=== PATIENT | male | born 1990 | race African-American/Black ===

== ENCOUNTER 2020-12-18 18:14 | Emergency (ER) | payer MEDICAID, SELFPAY ==
[2020-12-18 19:12] VITALS: BP 122/76; PULSE 66; RESP 16; TEMP 36.8; O2SAT 100; BMI 22.1
--- NOTE | 2020-12-18 20:18 | ED_ITS ---
HPI - Skin/Abscess/Foreign Bdy General Chief complaint: Skin/Abscess/Foreign Body Stated complaint: rash Time Seen by Provider: 12/18/20 20:15 Source: patient Mode of arrival: ambulatory Limitations: no limitations History of Present Illness HPI narrative: PATIENT PRESENTS TO ED FOR ITCHY RASH ON NECK, BACK, CHEST, AND EXTREMITIES. 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 PATIENT DENIES BEING BITTEN BY A TICK. PATIENT DENIES ANY FEVER OR CHILLS. Related Data Previous Rx's Medication Instructions Recorded diphenhydramine HCl 25 mg capsule 25 mg PO TID PRN #30 cap 12/18/20 (Benadryl) famotidine 20 mg tablet (Pepcid) 20 mg PO BID 10 Days #20 tab 12/18/20 prednisone 20 mg tablet 60 mg PO DAILY 5 Days #15 tab 12/18/20 Allergies Allergy/AdvReac Type Severity Reaction Status Date / Time No Known Allergies Allergy Unverified 12/18/20 19:17 [No Known Allergies*] Review of Systems Review of Systems: Yes all other systems are reviewed and are negative Constitutional: Constitutional: Reports as per HPI and Reports no additional constitutional complaints Eyes: Eyes: Reports as per HPI and Reports no additional eye complaints ENT: Reports system reviewed and no additional complaints, except as documented and Reports as per HPI Cardiovascular: Cardiovascular: Reports as per HPI and Reports no additional cardiovascular complaints Respiratory: Respiratory: Reports as per HPI and Reports no additional respiratory complaints Gastrointestinal: Gastrointestinal: Reports as per HPI and Reports no additional gastrointestinal complaints Genitourinary: Genitourinary: Reports no additional male genitourinary complaints and Reports as per HPI Musculoskeletal: Musculoskeletal: Reports no additional musculoskeletal complaints and Reports as per HPI Integumentary/Breasts: Skin/Breast: Reports system reviewed and no additional complaints, except as docu and Reports as per HPI Comments: ITCHY RASH ON CHEST, NECK, BACK, AND EXTREMITIES Neurologic: Reports system reviewed and no additional complaints, except as documented and Reports as per HPI Psychiatric: Psychiatric: Reports no additional psychiatric complaints and Reports as per HPI PMF Past Medical History Medical History (Updated 12/18/20 @ 20:27 by SYL Mei) No known health problems Social History Social History Advance Directives: No Advance Directives Information Provided: No Physical Exam Vital Signs: Vital Signs: Last Vital Signs Temp 98.2 F 08/10/21 19:12 Pulse 66 12/18/20 19:12 Resp 16 12/18/20 19:12 BP 122/76 12/18/20 19:12 Pulse Ox 100 12/18/20 19:12 Body Mass Index 22.1 Const: General: cooperative, healthy appearing, comfortable, no acute distress, well developed, alert, awake and Physically active Orientation/consciousness: patient oriented x3 HENMT: Other: NEGATIVE FOR ANY SWELLING OF LIPS/TONGUE/UVULA. Head: Yes normal to inspection and Yes No palpable skull fracture present Ears: hearing grossly normal bilaterally Eyes: General: appearance normal, both eyes and all related structures Neck: Other: UTICARIA RASH/DERMATITIS Neck: Yes normal visual inspection, Yes full ROM, Yes no lymphadenopathy, Yes no meningeal signs, Yes trachea midline, Yes supple and No tender Chest: Other: YOU TO UTICARIA RASH/DERMATITIS Chest palpation & inspection: normal inspection of the chest and normal palpation of entire chest wall Resp: Effort & Inspection: normal respiratory effort and able to speak in complete sentences Auscultation: clear to auscultation bilaterally Cardio: Jugular venous distension: no JVD Heart sounds: S1 normal heart sound present and S2 normal heart sound present GI: Inspection: Yes normal to inspection and No abdominal wall ecchymosis Palpation (GI): Soft to palpation, not firm, nontender, no guarding and not rigid : General: No CVA tenderness and Yes no CVA tenderness Back/Spine/Pelvis: Other: POSITIVE FOR UTICARIAL RASH/DERMATITIS Back: no CVA tenderness, No CVA tenderness and No back tenderness Skin: Other: UTICARIAL RASH/DERMATITIS RASH Neuro: General: patient oriented x3, no meningeal signs and CN's II-XI intact bilaterally Cranial nerves: Yes CN's II-XII intact bilaterally Extrem: Other: UPPER LOWER EXTREMITIES POSITIVE FOR UTICARIAL RASH/DERMATITIS Course Course Course Narrative: ALLERGIC REACTION. NEGATIVE FOR AIRWAY COMPROMISE. Reevaluation(s) Reevaluation #1: PATIENT WILL BE DISCHARGED WITH BENADRYL, PREDNISONE, AND PEPCID Time: 20:25 MDM - Skin/Abscess/Foreign Bdy MDM Narrative Medical decision making narrative: ALLERGIC REACTION Discharge Plan Discharge Clinical Impression: Allergic reaction Patient Disposition: Home, Self-Care Instructions: Urticaria (ED), General Allergic Reaction (ED) Additional Instructions: RETURN TO THE ED FOR SWELLING OF LIPS, SWELLING OF TONGUE, SHORTNESS OF BREATH, SENSATION OF THROAT CLOSING, FEVER, CHILLS, WORSENING RASH, SHORTNESS OF BREATH, CHEST PAIN, OR ANY OTHER CONCERNING SYMPTOMS. Follow up with PCP. Prescriptions: New famotidine [Pepcid] 20 mg tablet 20 mg PO BID 10 Days Qty: 20 RF: 0 prednisone 20 mg tablet 60 mg PO DAILY 5 Days Qty: 15 RF: 0 diphenhydramine HCl [Benadryl] 25 mg capsule 25 mg PO TID PRN (Reason: allergic reaction) Qty: 30 RF: 0 Interventions: ED Discharge Assessment Last Done: 12/18/20 20:37 Discharge Date/Time: 12/18/20 20:38 Print Language: Persian
== END 2020-12-18 20:38 | disposition home or self-care (01) ==
PROVIDERS: Emergency Provider Emergency Medicine
DX: L50.9 Urticaria, unspecified (principal); T78.40XA Allergy, unspecified, initial encounter; X58.XXXA Exposure to other specified factors, initial encounter
CPT/HCPCS: 99283

== ENCOUNTER 2021-06-06 10:32 | Emergency (ER) | payer MEDICAID, SELFPAY ==
[2021-06-06 10:42] VITALS: BP 130/72; PULSE 72; RESP 18; TEMP 36.7; O2SAT 98; BMI 20.7
--- NOTE | 2021-06-06 10:48 | ED_ITS ---
HPI - General Adult General Chief complaint: Skin/Abscess/Foreign Body Stated complaint: lump on l hip and under l arm Time Seen by Provider: 06/06/21 10:48 Source: patient Limitations: no limitations History of Present Illness HPI narrative: Patient presents the ER with a small abscess in his left arm. Over the past 24- 48 hours. No prior history of similar episodes in the past. Patient takes no current medications and denies any past medical history. Patient is also complaining of an area in his left groin inguinal area with some swelling and pain. Patient has done some warm compresses no discharge has been noted from 90 area. Symptoms are [id number] pain is 5/10 no other complaints Related Data Previous Rx's Medication Instructions Recorded diphenhydramine HCl 25 mg capsule 25 mg PO TID PRN #30 cap 12/18/20 (Benadryl) famotidine 20 mg tablet (Pepcid) 20 mg PO BID 10 Days #20 tab 12/18/20 prednisone 20 mg tablet 60 mg PO DAILY 5 Days #15 tab 12/18/20 cephalexin 500 mg capsule 500 mg PO QID #40 cap 06/06/21 doxycycline hyclate 100 mg capsule 100 mg PO BID 10 Days #20 cap 06/06/21 Allergies Allergy/AdvReac Type Severity Reaction Status Date / Time No Known Allergies Allergy Verified 06/06/21 10:44 [No Known Allergies*] Review of Systems Verdana 4l Constitutional: Verdana 4d Constitutional: Verdana 4d Verdana 4d Denies body ache(s), Denies chills, Reports fever(s) (Question) and Denies headache(s) Verdana 4l ENT: Verdana 4d Denies headache(s) and Denies sore throat Verdana 4l Cardiovascular: Verdana 4d Cardiovascular: Verdana 4d Verdana 4d Denies chest pain and Denies dyspnea Verdana 4l Respiratory: Verdana 4d Verdana 4d Respiratory: Verdana 4d Denies dyspnea Verdana 4l Gastrointestinal: Verdana 4d Gastrointestinal: Verdana 4d Verdana 4d Denies diarrhea, Denies nausea and Denies vomiting Verdana 4l Musculoskeletal: Verdana 4d Musculoskeletal: Verdana 4d Verdana 4d Reports no additional musculoskeletal complaints Verdana 4l Integumentary/Breasts: Verdana 4d Comments: Verdana 4d Verdana 4d Verdana 4d Abscess left axilla left groin swelling Verdana 4d Verdana 4l Neurologic: Verdana 4d Denies headache(s) [facility] Past Medical History Attestation statement: The following information was validated with the patient. Medical History No known health problems Social History Social History Advance Directives: No Advance Directives Information Provided: Yes Physical Exam Verdana 4l Vital Signs: Verdana 4d Verdana 4d Vital Signs: Verdana 4d Verdana 4Bd Last Vital Signs Verdana 4d [employer] New 4d [employer] New 4d Temp 98.0 F 06/06/21 10:42 [employer] New 4d Pulse 72 06/06/21 10:42 [employer] New 4d Resp 18 06/06/21 10:42 BP 130/72 06/06/21 10:42 Pulse Ox 98 06/06/21 10:42 BMI result Body Mass Index 20.7 vital signs have been reviewed as normal and appeared to be correct. Blood pressure normal. Heart rate normal. Respiration rate normal. Temperature normal. Oxygen saturation normal. Appearance: Alert. Oriented X3. No acute distress. Head: Normal external exam. Normocephalic. Atraumatic. Eyes: PERRLA. EOMI. Conjunctiva and sclera normal. Eyelids normal. ENT: Pharynx normal. Uvula midline. Moist mucous membranes. Neck: Soft full range of motion CVS: Heart regular rate and rhythm no murmurs and rubs Respiratory: Breath sounds are clear to auscultation bilaterally. No accessory muscle use noted. Abdomen: Soft nontender no rebound or guarding positive bowel sounds Back: Full range of motion noted. Skin: Left axilla patient is very small draining abscess positive tenderness. Left inguinal area there is an area of edema in tenderness lymphadenopathy versus localized abscess positive tenderness no induration no lymphangitis Extremities: No lower extremity edema. Extremities exhibit normal range of motion. Extremities nontender. Neuro: Oriented X 3. No motor deficit. No sensory deficit. Reflexes normal. Course Course Course Narrative: Left axilla abscess Left inguinal abscess Left inguinal lymphangitis Left inguinal hematoma Case discussed with Dr. Bill will place ultrasound on left inguinal mass 11:38 a.m. Bedside ultrasound done by Dr. Bill some lymphadenopathy noted with may be a small abscess due to the location will not try needle aspirate at this time will start patient on oral antibiotics as recommended by Dr. Bill. Will discharge patient home on doxycycline and Keflex Discharge Plan Discharge Clinical Impression: Abscess of skin or subcutaneous tissue Patient Disposition: Home, Self-Care Instructions: Abscess (ED) Additional Instructions: Warm compresses 3 to 4 times a day Antibiotics as directed Return if symptoms worsen Prescriptions: New doxycycline hyclate 100 mg capsule 100 mg PO BID 10 Days Qty: 20 0RF cephalexin 500 mg capsule 500 mg PO QID Qty: 40 0RF No Action famotidine [Pepcid] 20 mg tablet 20 mg PO BID 10 Days Qty: 20 0RF prednisone 20 mg tablet 60 mg PO DAILY 5 Days Qty: 15 0RF diphenhydramine HCl [Benadryl] 25 mg capsule 25 mg PO TID PRN (Reason: allergic reaction) Qty: 30 0RF Rx Instructions: side effect is drowsiness. Do not take at work or while driving. Stand Alone Forms: Work/School Release
== END 2021-06-06 11:48 | disposition home or self-care (01) ==
PROVIDERS: Emergency Provider Emergency Medicine
DX: L02.412 Cutaneous abscess of left axilla (principal); L02.214 Cutaneous abscess of groin
CPT/HCPCS: 99283

== ENCOUNTER 2021-06-20 22:16 | Inpatient (IN) | payer MEDICAID, OTHER, SELFPAY ==
--- NOTE | ~2021-06-20 | XR_ITS ---
EXAMINATION: XR TOES, LEFT CLINICAL INFORMATION: Evaluate for fracture. Attention left great toe COMPARISON: None TECHNIQUE: Frontal view of the left foot. 2 views of the left great toe FINDINGS: There is an intra-articular fracture involving the medial third of the distal phalanx of the great toe. The margins are slightly indistinct. The articular surface is irregular. There is some associated soft tissue swelling. XR/XR toe LT min 2V IMPRESSION: Intra-articular fracture involving the medial third of the distal phalanx of the great toe. The margins are indistinct suggesting this may be subacute. There is associated soft tissue swelling
--- NOTE | 2021-06-20 22:18 | ED_ITS ---
HPI - Psych General Chief Complaint: Psychiatric Symptoms Stated Complaint: SI Time Seen by Provider: 06/20/21 22:18 Source: patient Mode of arrival: EMS Limitations: other (agitated) History of Present Illness MD complaint: suicidal ideation, feels depressed and other ( I am crazy ) Onset (ago): day(s) (1) Duration: getting worse History of same: Yes Relieving factors: none Exacerbating factors: alcohol Context: recent alcohol abuse Associated psychiatric symptoms: depression and suicidal ideation Associated symptoms: denies other symptoms Treatments prior to arrival: none Related Data Home Medications Medication Instructions Recorded Confirmed No Known Home Meds 06/20/21 06/20/21 Allergies Allergy/AdvReac Type Severity Reaction Status Date / Time No Known Allergies Allergy Verified 06/06/21 10:44 [No Known Allergies*] Review of Systems Review of Systems: Constitutional : No Fever, No Chills ENT/Mouth : No Ear Pain, No Nasal Congestion, No sore throat Eyes: No Eye Pain, No Swelling, No Redness Cardiovascular : No Chest Pain, No SOB Respiratory : No Cough, No Sputum, No Dyspnea Gastrointestinal : No Nausea, No Vomiting, No Diarrhea, No Hematochezia, No Melena Genitourinary : No Dysuria, No Urinary Frequency, No Hematuria Musculoskeletal : No Myalgias Skin : No Skin Lesions, No rash Neuro : No Weakness, No Numbness, No Paresthesias, No Dizziness, No Headache Psych : positive Anxiety, positive Depression, positive SI no HI Heme/Lymph: No Lymphadenopathy Endocrine : No Polyuria, No Polydipsia All other systems reviewed and are negative [facility] Past Medical History Attestation statement: The following information was validated with the patient. Medical History Anxiety No known health problems Social History Social History (Updated 06/20/21 @ 22:41 by Diamante Mena DO) Alcohol intake: current Patient Tobacco Use Status: Current everyday Tobacco user Advance Directives: No Physical Exam Vital Signs: Vital Signs: Last Vital Signs Temp 97.5 F 06/20/21 22: Pulse 93 06/20/21 22:23 Resp 20 06/20/21 22:23 BP 119/76 06/20/21 22:23 Pulse Ox 96 06/20/21 22:23 BMI result Body Mass Index 23.7 Appearance: Alert. Oriented X3. No acute distress. agitated. Eyes: Pupils equal, round and reactive to light. ENT: Pharynx normal. Neck: Normal inspection. Neck supple. CVS: Normal heart rate and rhythm. Pulses normal. Respiratory: No respiratory distress. Breath sounds normal. Abdomen: Soft and nontender. Skin: Skin warm and dry. Normal skin color. Normal skin turgor. Extremities: No lower extremity edema. No calf ttp Neuro: Oriented X 3. No motor deficit. No sensory deficit [id number] Psych: pos anxiety, aggressive. I am crazy Course Course Course Narrative: asymptomatic COVID 19 - unvaccinated Physician observation started at 1112pm Patient placed in physician observation because the patient needed more time for N to assess him given SI statements. At the time observation was started the patient's vitals were stable, patient is alert and oriented but slightly agitated, Neuro: nonfocal, CV RRR, Lungs clear MDM - Psych MDM Narrative Medical decision making narrative: 30 yo male with reported anxiety states he is intoxicated and I am crazy brought in by EMS for making SI statements. He is agitated and vague historian. Requesting PO ativan for anxiety. At this time will obtain labs and refer to N. Lab Data Result diagrams: 06/20/21 22:40 06/20/21 22:40 Labs: Lab Results 06/20/21 06/20/21 06/20/21 Range/Units 22:28 22:40 22:40 WBC 5.9 (4.8-10.8) X10*3/uL RBC 3.83 L (4.60-5.80) X10*6/uL Hgb 12.2 L (14.0-18.0) g/dl Hct 39.0 L (42.0-52.0) % MCV 101.8 H (80.0-98.0) fL MCH 31.9 (27.0-33.0) pg MCHC 31.3 (31.0-36.0) g/dl RDW 12.2 (11.0-16.0) % Plt Count 372 (160-400) X10*3/uL MPV 8.9 L (9.4-12.4) fL Immature Gran % (Auto) 0.2 (0.0-0.4) % Neut % (Auto) 49.7 (45-73) % Lymph % (Auto) 44.8 H (20-40) % Mcnairy % (Auto) 4.3 (2-11) % Eos % (Auto) 0.5 (0-4) % Baso % (Auto) 0.5 (0-2) % Lymph # (Auto) 2.6 (1.2-4.9) X10*3/uL Mcnairy # (Auto) 0.3 (0.1-1.2) X10*3/uL Eos # (Auto) 0.0 (0.0-0.4) X10*3/uL Baso # (Auto) 0.0 (0.0-0.2) X10*3/uL Abs Immat Gran (auto) 0.01 (0.00-0.03) X10*3/uL Absolute Neuts (auto) 2.9 (2.0-8.3) x10*3/uL Absolute Nucleated RBC 0.000 (0.0-0.012) X10*3/uL Nucleated RBC % (auto) 0.0 (0.0-0.2) /100WBC Sodium 142 (135-145) mmol/L Potassium 4.6 (3.3-5.1) mmol/L Chloride 106 (96-108) mmol/L Carbon Dioxide 26 (22-29) mmol/L Anion Gap 15 (12-20) BUN 17 H (9-16) mg/dL Creatinine 0.84 (0.5-1.4) mg/dL Estim Creat Clear Calc 136.9 Estimated GFR > 60 Random Glucose 95 (60-115) mg/dL Calcium 9.5 (8.4-10.2) mg/dL Total Bilirubin 0.4 (0.0-1.0) mg/dL Direct Bilirubin 0.2 (0.0-0.5) mg/dL AST 41 H (5-37) U/L ALT 20 (0-40) U/L Alkaline Phosphatase 124 H (39-117) U/L Total Protein 9.1 H (6.5-8.0) g/dL Albumin 4.8 (3.5-5.0) g/dL Ethyl Alcohol mg/dL COVID-19 ([facility]) Positive A (Negative) COVID-19 Clin Com See Note 06/20/21 Range/Units 22:40 WBC (4.8-10.8) X10*3/uL RBC (4.60-5.80) X10*6/uL Hgb (14.0-18.0) g/dl Hct (42.0-52.0) % MCV (80.0-98.0) fL MCH (27.0-33.0) pg MCHC (31.0-36.0) g/dl RDW (11.0-16.0) % Plt Count (160-400) X10*3/uL MPV (9.4-12.4) fL Immature Gran % (Auto) (0.0-0.4) % Neut % (Auto) (45-73) % Lymph % (Auto) (20-40) % Mcnairy % (Auto) (2-11) % Eos % (Auto) (0-4) % Baso % (Auto) (0-2) % Lymph # (Auto) (1.2-4.9) X10*3/uL Mcnairy # (Auto) (0.1-1.2) X10*3/uL Eos # (Auto) (0.0-0.4) X10*3/uL Baso # (Auto) (0.0-0.2) X10*3/uL Abs Immat Gran (auto) (0.00-0.03) X10*3/uL Absolute Neuts (auto) (2.0-8.3) x10*3/uL Absolute Nucleated RBC (0.0-0.012) X10*3/uL Nucleated RBC % (auto) (0.0-0.2) /100WBC Sodium (135-145) mmol/L Potassium (3.3-5.1) mmol/L Chloride (96-108) mmol/L Carbon Dioxide (22-29) mmol/L Anion Gap (12-20) BUN (9-16) mg/dL Creatinine (0.5-1.4) mg/dL Estim Creat Clear Calc Estimated GFR Random Glucose (60-115) mg/dL Calcium (8.4-10.2) mg/dL Total Bilirubin (0.0-1.0) mg/dL Direct Bilirubin (0.0-0.5) mg/dL AST (5-37) U/L ALT (0-40) U/L Alkaline Phosphatase (39-117) U/L Total Protein (6.5-8.0) g/dL Albumin (3.5-5.0) g/dL Ethyl Alcohol 133 mg/dL COVID-19 ([facility]) (Negative) COVID-19 Clin Com Discharge Plan Discharge Clinical Impression: Suicidal ideation, COVID-19, Alcohol intoxication Patient Disposition: Still a Patient Prescriptions: No Action No Known Home Meds 0RF
[2021-06-20 22:23] VITALS: BP 119/76; PULSE 93; RESP 20; TEMP 36.4; O2SAT 96; BMI 23.7
[2021-06-20 22:42] LABS: COVID-19 Test Positive (Negative); IDNOW Serial# 55D5AD1C
[2021-06-20 22:45] LABS: MANUAL DIFF FLAG NO
[2021-06-20 22:47] LABS: Basophils Percent Auto 0.5 % (0-2); Eosinophils Percent Auto 0.5 % (0-4); Hemoglobin 12.2 g/dl (14.0-18.0); Imm Gran Abs Auto 0.01 X10*3/uL (0.00-0.03); Imm Gran Pct Auto 0.2 % (0.0-0.4); Lymphocytes Absolute Auto 2.6 X10*3/uL (1.2-4.9); Lymphocytes Percent Auto 44.8 % (20-40); Mean Corpuscular HGB Conc 31.3 g/dl (31.0-36.0); Mean Corpuscular Hemoglobin 31.9 pg (27.0-33.0); Mean Corpuscular Volume 101.8 fL (80.0-98.0); Mean Platelet Volume 8.9 fL (9.4-12.4); Monocytes Absolute Auto 0.3 X10*3/uL (0.1-1.2); Monocytes Percent Auto 4.3 % (2-11); Neutrophils Absolute Auto 2.9 x10*3/uL (2.0-8.3); Neutrophils Percent Auto 49.7 % (45-73); Platelet Count 372 X10*3/uL (160-400); Red Blood Count 3.83 X10*6/uL (4.60-5.80); Red Cell Distribution Width 12.2 % (11.0-16.0); White Blood Count 5.9 X10*3/uL (4.8-10.8)
[2021-06-20] MEDS: Nicotine 21 MG PATCH.TD24 TRANSDERMA (22:54)
[2021-06-20] MEDS: LORazepam 1 MG TABLET 2 MG PO (22:54)
[2021-06-20 23:05] LABS: Ethanol 133 mg/dL
[2021-06-20 23:09] LABS: Alanine Aminotransferase 20 U/L (0-40); Albumin Level 4.8 g/dL (3.5-5.0); Alkaline Phosphatase 124 U/L (39-117); Anion Gap 15 (12-20); Aspartate Amino Transferase 41 U/L (5-37); Bilirubin Direct 0.2 mg/dL (0.0-0.5); Bilirubin Total 0.4 mg/dL (0.0-1.0); Blood Urea Nitrogen 17 mg/dL (9-16); Calcium 9.5 mg/dL (8.4-10.2); Carbon Dioxide 26 mmol/L (22-29); Chloride 106 mmol/L (96-108); Creatinine Clr Calc Pharmacy 136.9; Estimated Glomerular Filt Rate > 60; Glucose Random 95 mg/dL (60-115); Potassium 4.6 mmol/L (3.3-5.1); Sodium 142 mmol/L (135-145); Total Protein 9.1 g/dL (6.5-8.0)
--- NOTE | 2021-06-21 | ECG_ITS ---
Test Reason : MEDICAL CLERANCE Blood Pressure : / mmHG Vent. Rate : 063 BPM Atrial Rate : 063 BPM P-R Int : 156 ms QRS Dur : 084 ms QT Int : 402 ms P-R-T Axes : 057 070 046 degrees QTc Int : 411 ms Sinus rhythm with marked sinus arrhythmia Otherwise normal ECG No previous ECGs available Referred By: Adwoa Jackson Electronically Signed By:Selvin Zamora
--- NOTE | 2021-06-21 05:20 | PC.NURSE ---
Patient slept through the night, no distress observed/reported, patient received Ativan 2 mg @ 2254 with good effect, [facility] referral completed/confirmed, pending evaluation in the morning, vss, will continue to monitor.
[2021-06-21 06:37] VITALS: BP 131/63; PULSE 83; RESP 18; TEMP 2.7; TEMP 36.9; O2SAT 99
--- NOTE | 2021-06-21 08:28 | PC.NURSE ---
Pt has been sleeping. chest rise noted.
[2021-06-21 09:26] LABS: Amphetamine Screen Urine Not Detected (Not Detect); Barbiturates, Urine Not Detected (Not Detect); Benzodiazepines Screen Urine Not Detected (Not Detect); Cannabinoid Screen Urine POSITIVE (Not Detect); Cocaine Screen Urine Not Detected (Not Detect); Fentanyl, urine Not Detected (Not Detect); Opiate Screen Urine Not Detected (Not Detect); Phencyclidine Screen Urine Not Detected (Not Detect)
--- NOTE | 2021-06-21 12:40 | P.CNPS_ITS ---
History of Present Illness Date of Service: 06/21/2021 Chief Complaint: SI Reason for Consult: Auditory hallucinations, telling him to run into traffic. Requesting physician: Denae Pereira Discussed with referring provider: Yes Sources of Information: patient interviewed, chart reviewed and crisis/core team assessment reviewed HPI Narrative: Patient is a 30-year-old single male, presented to [facility] via EMS. He called EMS regarding suicidal ideation, and stating ?I am going crazy ?. BAL 133 upon presentation, tox screen positive for marijuana. He says that he has been drinking and using cannabis in order Help manage the hallucinations. He did not appear to be intoxicated at any point during our encounter, nor were any withdrawal symptoms present. Care team has already met with patient. He presented as calm, cooperative upon approach, and was agreeable to meeting with me. Dressed in [facility], resting in bed. He was agreeable to meeting with me. He describes his mood as afraid, nervous . He reports that he has been having auditory and visual hallucinations, which have been occurring for at least several months, recently becoming more intense. Prior to Calling EMS, he stated that the voices started telling him to run into traffic. He denies any history of SI attempts. He says that the voices scared him, and that he wants to get help. He describes the voices as mainly whispers, but recently as clear voices, Command hallucinations urging him to kill himself. He does describe visual hallucinations at first as shadows, but now often times are people. He was unable at this time to report that he feels safe. He says he does not have any history of attempts of SI. He was born in [place], and States that his mother has never really been a part of his life. He moved to [place] with his father at age 3, and has grown up with his mother and father. He states that he currently does not know where his father is at this time, And has lost contact. He did attend high school, although did not graduate. He says that he got into an argument with his grandmother, and has been staying with friends. He works full-time for a [employer]. 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 He says that he has called in this morning to let them know he is in the hospital. He states he has never been hospitalized on a psychiatric unit. He does report though that he started therapy As 18, and was at [facility] during that time. When asked why he was there, he stated ?for anger issues ?. He states that he does remember being given some type of medication for anxiety and mood. He describes it as orange pills, and he seems remember a dose of 500 mg. He is u nable to recall the name. He does say that when he was taking the medication it made him feel more stable. Past Psychiatric History: [facility] as a teen. Therapy as a teen. Medical Evaluation Reviewed: Yes Personal & Social History: Moved to [facility] at age 3. Raised by father and grand mother. States mother has not involved throughout his life. Attended vocational high school, did not complete. 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 Single, no children. Review of Systems Review of Systems A full review of systems was completed and was negative with the exception of pertinent positives noted in history of the presenting illness (HPI). Yes all other systems are reviewed and are negative Constitutional: Reports no additional constitutional complaints Psychiatric: Reports anxiety, Reports auditory hallucinations, Reports visual hallucinations and Reports suicidal ideation [facility] Medical History Anxiety No known health problems Family History: No psychiatric or physical illness reported. Social History: Raised by grandmother and father. No current contact with father, never had contact with mother. Employed full-time. Single, no children. Substance History: Reports occasional alcohol and cannabis use, states uses to stop the voices ?. Trauma History: None reported. Diagnostics Vital Signs (24Hr): Vital Signs - 24 hr 06/20/21 22:23 06/21/21 06:37 Temperature 97.5 F 36.9 F L Pulse Rate 93 83 Respiratory Rate 20 18 Blood Pressure 119/76 131/63 Pulse Oximetry 96 99 BMI result Body Mass Index 23.7 Labs Results: 06/20/21 22:40 06/20/21 22:40 Labs: Laboratory Results - last 48 hr 06/20/21 06/20/21 06/20/21 22:28 22:40 22:40 WBC 5.9 RBC 3.83 L Hgb 12.2 L Hct 39.0 L MCV 101.8 H MCH 31.9 MCHC 31.3 RDW 12.2 Plt Count 372 MPV 8.9 L Immature Gran % (Auto) 0.2 Neut % (Auto) 49.7 Lymph % (Auto) 44.8 H [place] % (Auto) 4.3 Eos % (Auto) 0.5 Baso % (Auto) 0.5 Lymph # (Auto) 2.6 [place] # (Auto) 0.3 Eos # (Auto) 0.0 Baso # (Auto) 0.0 Abs Immat Gran (auto) 0.01 Absolute Neuts (auto) 2.9 Absolute Nucleated RBC 0.000 Nucleated RBC % (auto) 0.0 Sodium 142 Potassium 4.6 Chloride 106 Carbon Dioxide 26 Anion Gap 15 BUN 17 H Creatinine 0.84 Estim Creat Clear Calc 136.9 Estimated GFR > 60 Random Glucose 95 Calcium 9.5 Total Bilirubin 0.4 Direct Bilirubin 0.2 AST 41 H ALT 20 Alkaline Phosphatase 124 H Total Protein 9.1 H Albumin 4.8 Urine Opiates Screen Urine Fentanyl Screen Ur Barbiturates Screen Ur Phencyclidine Scrn Ur Amphetamines Screen U Benzodiazepines Scrn Urine Cocaine Screen U Marijuana (THC) Screen Ethyl Alcohol COVID-19 ([facility]EVO) Positive A COVID-19 Clin Com See Note 06/20/21 06/21/21 22:40 09:04 WBC RBC Hgb Hct MCV MCH MCHC RDW Plt Count MPV Immature Gran % (Auto) Neut % (Auto) Lymph % (Auto) [place] % (Auto) Eos % (Auto) Baso % (Auto) Lymph # (Auto) [place] # (Auto) Eos # (Auto) Baso # (Auto) Abs Immat Gran (auto) Absolute Neuts (auto) Absolute Nucleated RBC Nucleated RBC % (auto) Sodium Potassium Chloride Carbon Dioxide Anion Gap BUN Creatinine Estim Creat Clear Calc Estimated GFR Random Glucose Calcium Total Bilirubin Direct Bilirubin AST ALT Alkaline Phosphatase Total Protein Albumin Urine Opiates Screen Not Detected Urine Fentanyl Screen Not Detected Ur Barbiturates Screen Not Detected Ur Phencyclidine Scrn Not Detected Ur Amphetamines Screen Not Detected U Benzodiazepines Scrn Not Detected Urine Cocaine Screen Not Detected U Marijuana (THC) Screen POSITIVE H Ethyl Alcohol 133 COVID-19 (STEVO) COVID-19 Clin Com Mental Status Exam Mental Status Exam Narrative: Well-developed, well-nourished male. Appears stated age. Resting in bed. No involuntary movements, no tics or tremors noted. Patient Appearance: Well Grooomed and Appropriate Patient Orientation: Person, Place, Time and Situation Level of Consciousness: Awake, Appropriate and Alert Patient Behavior: Appropriate, Cooperative and Good Eye Contact Mood Description: Fearful and Anxious Affect Description: Depressed, Blunted and Flat Patient Cognition Impaired: No Ability to Follow Directions: Excellent Speech Pattern: Clear, Appropriate and Coherent Memory Description: Intact Hallucinations: Auditory, Visual and Command (Telling him to run into traffic.) Delusions: Present Thought Process: Intact Thought Content: positive for Suicidal Ideation Depressive Symptoms: Increased Anxiety, Loss of Int. in Activity, Feelings of Worthlessness, Hopelessness, Feelings of Guilt, Unhappiness, Thoughts of /Suicide and Low Self Esteem Judgement: Fair Judgement and Insight: Fair but adequate, is help seeking, willing to take antipsychotic medication at this time. Medications Allergies Allergies Allergy/AdvReac Type Severity Reaction Status Date / Time No Known Allergies Allergy Verified 06/06/21 10:44 [No Known Allergies*] Assessment & Plan Assessment & Plan (1) Suicidal ideation: Status: Acute Code(s): R45.851 - Suicidal ideations Assessment and Plan: Patient currently endorses active auditory and visual hallucinations, reports worsening symptoms over past several months. Reports voices recently started telling him to run into traffic. He reports that he is actively suicidal, and D oes not feel safe at this time. He reports a history of residential treatment at [facility] as a teen. He states he believes it was for ?anger issues ?, but does not remember anything else. He states that he was treated while there for anxiety, states that he was medicated but cannot remember the name of the medication. He reports that he has found himself over past several months increasing alcohol and cannabis intake, in order to ?Stop the voices ?. He did not appear to be intoxicated at any point during our encounter, nor were any withdrawal symptoms present. We discussed adding a medication such as risperidone, in order to help quiet the voices as well as help clear his thoughts. He was agreeable to this at this time. Risks and benefits of risperidone was presented, including alternatives. (2) Psychosis: Status: Acute Code(s): F29 - Unspecified psychosis not due to a substance or known physiological condition Plan 1. Add risperidone 1 mg b.i.d.. 2. Care team involved, recommending inpatient level of care at this time. This case was discussed with SYL Garcia, Via secure messaging system. Thank you for this consultation. I spent minutes with the patient and/or on the patient floor today, greater than?50% of which was spent counseling/coordinating care. Patient educated on: diagnosis, medication risk/benefits and therapeutic strategies Informed Consent: understands
[2021-06-21] MEDS: risperiDONE 1 MG TABLET PO ×2 (14:08→22:27)
--- NOTE | 2021-06-21 15:34 | PC.NURSE ---
Care team updated this nurse patient to be admitted to m5 later on this shift. Pt at this time resting comfortably in bed.
[2021-06-21 22:29] VITALS: BP 133/73; PULSE 77; RESP 16; TEMP 37.3; O2SAT 100
[2021-06-21 23:15] VITALS: BP 128/75; PULSE 75; RESP 18; TEMP 35.8; O2SAT 98
--- NOTE | 2021-06-22 00:48 | PC.ADMIT ---
PT is a 30 year old single, employed, homeless, [facility] male, who presented to [facility] by calling EMS reporting SI, PT stated 'I am going crazy.' PT arrived to at 2248 on CV escorted by staff and security in a WC. Nurse to nurse completed,PT A+Ox4, VSS 2313 T96.5, P75, MARLON 128/75, R 18, O2 98%/RA. PT is COVID positive as of 06/20/21, PT asymptomatic at this time. PT requesting flu vaccine, PT requesting Nicotine replacement. PT was not on any medications outpatient and has no PCP. PT was living with grandmother but is currently not talking to her so he is unable to stay there. Upon admission to ER PT BAL was 133 and tox screen was positive for marijuana. PT has HX of presenting to ER intoxicated, dating back to 2011, PT is unknown to . PT was calm and cooperative lying in bed during assessment. PT admits to using marijuana daily, PT called 911 when he was hearing command hallucination to run into the road and kill himself. PT reports poor appetite and poor sleep. PT feels safe on unit. PT denies SI/HI and A/V H at this time. PT reports he punched a wall yesterday due to the voices. PT has no PMH. PT has NKDA, except pollen.
[2021-06-22 06:00] VITALS: BP 128/75; PULSE 75; RESP 16; TEMP 35.8; O2SAT 98
[2021-06-22 08:25] LABS: Cholesterol 141 mg/dL; HDL Cholesterol 47 mg/dL; LDL Cholesterol Calculated 78 mg/dl; Magnesium 2.1 mg/dL (1.6-2.6); Triglycerides 84 mg/dL
[2021-06-22 08:29] LABS: Estimated Average Glucose 82 mg/dL; Hemoglobin A1C 80.8881 umol/L; Hemoglobin A1c % 4.5 %
[2021-06-22 08:48] LABS: Free T4 (Free Thyroxine) 0.94 ng/dL (0.71-1.85); Thyroid Stimulating Hormone 0.78 uIU/mL (0.32-4.0)
[2021-06-22] MEDS: risperiDONE 1 MG TABLET PO ×2 (09:40→20:06)
--- NOTE | 2021-06-22 11:59 | P.HPPS_ITS ---
HPI Date of Service: 06/22/21 Chief Complaint: SI, depression Sources of Information: patient interviewed, chart reviewed and crisis/core team assessment reviewed HPI Subjective Notes: Daily Warning and Conditional Voluntary Healthcare Proxy: No Guardianship: No Medical Problems Affecting Mental Status: No Narrative: 30 yo male, to ER with EMS. Pt reporting SI, stating he felt crazy. Reports depression, anxiety, command hallucinations to run into traffic, VH-seeing peopole. Reported poor appetite and sleep along with response to internal stimuli- whispers . Pt today reports he has had voices and visions for a significant length of time (~2+ months) and cannabis helps to manage them. Reports cannabis if purchased from dispensary and denies any possibility of o ther agents being placed in his supply.Reports increase in sleep, appetite is intact. denies depressive sx and reports a lot of anxiety . Reports he cannot describe the visions however states he was told he was seen kneeling down on the floor speaking with the ground, an incident he does not recall. Pt found to be COVID + and is in isolation on the unit. He signed three day notice of intent today. Team report he was overheard on his cell phone, making arrangements for drugs to be picked up as he had hoped for discharge today. Toxicology positive for cannabis, BAL 133. Past Psychiatric History: [facility] as a teen. Therapy as a teen. IP: Denies OP: Denies Trials: Several years ago a 500 mg pill which he does not recall the name of or believes it was helpful for him. SA-Denies Medical Evaluation Reviewed: Yes [facility] Medical History Anxiety No known health problems Family History: No psychiatric or physical illness reported. Social History: Raised by grandmother and father. No current contact with father, never had contact with mother. Employed full-time. Single, no children. Substance History: Cannabis Denies hx of detox/rehab. Trauma History: None reported. Diagnostics Vital Signs (24Hr): Vital Signs - 24 hr 06/21/21 22:29 06/21/21 23:15 06/22/21 06:00 Temperature 99.2 F 96.5 F L 96.5 F L Pulse Rate 77 75 75 Respiratory Rate 16 18 16 Blood Pressure 133/73 128/75 128/75 Pulse Oximetry 100 98 98 BMI result Body Mass Index 23.7 Labs Results: 06/20/21 22:40 06/20/21 22:40 Labs: Laboratory Results - last 48 hr 06/20/21 06/20/21 06/20/21 22:28 22:40 22:40 WBC 5.9 RBC 3.83 L Hgb 12.2 L Hct 39.0 L MCV 101.8 H MCH 31.9 MCHC 31.3 RDW 12.2 Plt Count 372 MPV 8.9 L Immature Gran % (Auto) 0.2 Neut % (Auto) 49.7 Lymph % (Auto) 44.8 H [place] % (Auto) 4.3 Eos % (Auto) 0.5 Baso % (Auto) 0.5 Lymph # (Auto) 2.6 [place] # (Auto) 0.3 Eos # (Auto) 0.0 Baso # (Auto) 0.0 Abs Immat Gran (auto) 0.01 Absolute Neuts (auto) 2.9 Absolute Nucleated RBC 0.000 Nucleated RBC % (auto) 0.0 Sodium 142 Potassium 4.6 Chloride 106 Carbon Dioxide 26 Anion Gap 15 BUN 17 H Creatinine 0.84 Estim Creat Clear Calc 136.9 Estimated GFR > 60 Random Glucose 95 Estimat Average Glucose Hemoglobin A1c % Calcium 9.5 Magnesium Total Bilirubin 0.4 Direct Bilirubin 0.2 AST 41 H ALT 20 Alkaline Phosphatase 124 H Total Protein 9.1 H Albumin 4.8 Triglycerides Cholesterol LDL Cholesterol, Calc HDL Cholesterol TSH Free T4 Urine Opiates Screen Urine Fentanyl Screen Ur Barbiturates Screen Ur Phencyclidine Scrn Ur Amphetamines Screen U Benzodiazepines Scrn Urine Cocaine Screen U Marijuana (THC) Screen Ethyl Alcohol COVID-19 (STEVO) Positive A COVID-19 Clin Com See Note 06/20/21 06/21/21 06/22/21 22:40 09:04 07:32 WBC RBC Hgb Hct MCV MCH MCHC RDW Plt Count MPV Immature Gran % (Auto) Neut % (Auto) Lymph % (Auto) [place] % (Auto) Eos % (Auto) Baso % (Auto) Lymph # (Auto) [place] # (Auto) Eos # (Auto) Baso # (Auto) Abs Immat Gran (auto) Absolute Neuts (auto) Absolute Nucleated RBC Nucleated RBC % (auto) Sodium Potassium Chloride Carbon Dioxide Anion Gap BUN Creatinine Estim Creat Clear Calc Estimated GFR Random Glucose Estimat Average Glucose 82 Hemoglobin A1c % 4.5 Calcium Magnesium Total Bilirubin Direct Bilirubin AST ALT Alkaline Phosphatase Total Protein Albumin Triglycerides Cholesterol LDL Cholesterol, Calc HDL Cholesterol TSH Free T4 Urine Opiates Screen Not Detected Urine Fentanyl Screen Not Detected Ur Barbiturates Screen Not Detected Ur Phencyclidine Scrn Not Detected Ur Amphetamines Screen Not Detected U Benzodiazepines Scrn Not Detected Urine Cocaine Screen Not Detected U Marijuana (THC) Screen POSITIVE H Ethyl Alcohol 133 COVID-19 (STEVO) COVID-19 [facility] Com 06/22/21 07:32 WBC RBC Hgb Hct MCV MCH MCHC RDW Plt Count MPV Immature Gran % (Auto) Neut % (Auto) Lymph % (Auto) [place] % (Auto) Eos % (Auto) Baso % (Auto) Lymph # (Auto) [place] # (Auto) Eos # (Auto) Baso # (Auto) Abs Immat Gran (auto) Absolute Neuts (auto) Absolute Nucleated RBC Nucleated RBC % (auto) Sodium Potassium Chloride Carbon Dioxide Anion Gap BUN Creatinine Estim Creat Clear Calc Estimated GFR Random Glucose Estimat Average Glucose Hemoglobin A1c % Calcium Magnesium 2.1 Total Bilirubin Direct Bilirubin AST ALT Alkaline Phosphatase Total Protein Albumin Triglycerides 84 Cholesterol 141 LDL Cholesterol, Calc 78 HDL Cholesterol 47 TSH 0.78 Free T4 0.94 Urine Opiates Screen Urine Fentanyl Screen Ur Barbiturates Screen Ur Phencyclidine Scrn Ur Amphetamines Screen U Benzodiazepines Scrn Urine Cocaine Screen U Marijuana (THC) Screen Ethyl Alcohol COVID-19 (STEVO) COVID-19 Clin Com Meds/Allergies Meds Home Medications Acetaminophen (Acetaminophen 325 Mg Tablet) 650 mg PO Q6H PRN PRN Reason: Headache/Pain Mild Scale (1-3) Al Hydroxide/Mg Hydroxide (Magnesium Hydrox/Alum Hydrox 30 Ml Oral.Susp) 30 ml PO Q6H PRN PRN Reason: Heartburn/Nausea Hydroxyzine HCl (Hydroxyzine Hcl 25 Mg Tablet) 25 mg PO Q6H PRN PRN Reason: Anxiety Magnesium Hydroxide (Milk Of Magnesia 30 Ml Oral.Susp) 30 ml PO DAILY PRN PRN Reason: Constipation Multivitamins/Vitamin C (Multivitamin Tablet) 1 tab PO DAILY [facility] Risperidone (Risperidone 1 Mg Tablet) 1 mg PO BID [facility] Last Admin: 06/22/21 09:40 Dose: 1 mg Documented by: Thiamine HCl (Thiamine Hcl 100 Mg Tablet) 100 mg PO DAILY [facility] Trazodone HCl (Trazodone Hcl 50 Mg Tablet) 50 mg PO BEDTIME PRN PRN Reason: Insomnia Allergies Allergies Allergy/AdvReac Type Severity Reaction Status Date / Time No Known Allergies Allergy Verified 06/06/21 10:44 [No Known Allergies*] Mental Status Exam Mental Status Exam Patient Appearance: Appropriate Patient Orientation: Person, Place, Time and Situation Level of Consciousness: Alert Patient Behavior: Guarded, Talkative and Good Eye Contact Mood Description: Constricted Affect Description: Constricted Patient Cognition Impaired: No Ability to Follow Directions: Good Speech Pattern: Spontaneous Speech and Soft-Spoken Memory Description: Intact Hallucinations: Auditory and Visual Thought Process: Distracted Thought Content: positive for Circumstantial Depressive Symptoms: Increased Anxiety, Sleeping More Than Usual and Thoughts of /Suicide (denies) Abnormal Motor Activity Signs and Symptoms: Restlessness Judgement: Fair Assessment & Plan Assessment & Plan (1) Schizoaffective disorder: Status: Acute Code(s): F25.9 - Schizoaffective disorder, unspecified (2) Cannabis use disorder, severe, dependence: Status: Acute Code(s): F12.20 - Cannabis dependence, uncomplicated (3) COVID-19: Status: Acute Code(s): U07.1 - COVID-19 (4) Alcohol use disorder, moderate, dependence: Status: Acute Code(s): F10.20 - Alcohol dependence, uncomplicated Plan 30 yo male, hx of alcohol, cannabis use, reports voices for the past ~2 months, command yesterday to run into traffic and visions where he was told he was speaking to the ground. Pt reports an increase in anxiety, SI, poor sleep and undisrupted appetite. Plan: MVI i daily Thiamine 100 mg daily Ferrous Sulfate 324 mg daily X Ray R Great Toe to r/o fracture Continue Risperdal Collateral contacts Pt learned on admit that he is COVID +. He has signed a three day notice as he mir not want to quarantine at this time. Patient educated on: medication risk/benefits, therapeutic strategies and medical condition Informed Consent: understands and further education needed Reason for continued inpatient stay Substantial Risk for: harm to self, inability to function and rapid decompensation
--- NOTE | 2021-06-22 14:29 | PC.NURSE ---
Pt signed a 3 day notice on 06/22/21, up on 06/26/21
[2021-06-22 20:18] VITALS: BP 124/66; PULSE 74; RESP 16; TEMP 36.3; O2SAT 98
[2021-06-23 06:45] VITALS: BP 108/62; PULSE 60; RESP 16; TEMP 36.1; O2SAT 97
[2021-06-23] MEDS: Multivitamin TABLET 1 TAB PO (08:29)
[2021-06-23] MEDS: risperiDONE 1 MG TABLET PO ×2 (08:29→20:34)
[2021-06-23] MEDS: Thiamine HCL 100 MG TABLET PO (08:30)
--- NOTE | 2021-06-23 09:31 | HO.PSYCHPN ---
Subjective Subjective Date of Service: 06/23/21 Reason For Visit: SI, depression Subjective Notes: 3 Day (06/26/21) Interim History: Leonard reports medications are effective and denies sx of perceptual alterations, SI, HI, paranoia. TDN submitted. Pt is in quarantine, cannot participate in milieu due to COVID positive status and would rather be at home with his friends. Will discuss with team and see if out patient supports can be put into place Medication Compliance: Yes Side effects from medications: No Attending Groups: No (covid positive, asymptomatic) Review of Systems Acute medical concerns: No Medical Review of Systems: unchanged Mental Status Exam Mental Status Exam Patient Appearance: Appropriate Patient Orientation: Person, Place, Time and Situation Level of Consciousness: Alert Patient Behavior: Appropriate, Talkative, Cooperative and Good Eye Contact Mood Description: Calm Affect Description: Calm Patient Cognition Impaired: No Ability to Follow Directions: Good Speech Pattern: Spontaneous Speech Memory Description: Intact Hallucinations: None (denies) Delusions: Not Present Thought Process: Intact and Goal Oriented Thought Content: positive for Goal Oriented Judgement: Good Diagnostics Vital Signs (24Hr): Vital Signs - 24 hr 06/22/21 20:18 06/23/21 06:45 Temperature 97.4 F 97 F Pulse Rate 74 60 Respiratory Rate 16 16 Blood Pressure 124/66 108/62 Pulse Oximetry 98 97 BMI result Body Mass Index 23.7 Labs Results: 06/20/21 22:40 06/20/21 22:40 Labs: Laboratory Results - last 48 hr 06/22/21 06/22/21 07:32 07:32 Estimat Average Glucose 82 Hemoglobin A1c % 4.5 Magnesium 2.1 Triglycerides 84 Cholesterol 141 LDL Cholesterol, Calc 78 HDL Cholesterol 47 TSH 0.78 Free T4 0.94 Imaging Radiology Impressions: ITS Impressions Toe X-Ray 06/22/21 13:45 IMPRESSION: Intra-articular fracture involving the medial third of the distal phalanx of the great toe. The margins are indistinct suggesting this may be subacute. There is associated soft tissue swelling Medications Medications Current Medications Acetaminophen (Acetaminophen 325 Mg Tablet) 650 mg PO Q6H PRN PRN Reason: Headache/Pain Mild Scale (1-3) Al Hydroxide/Mg Hydroxide (Magnesium Hydrox/Alum Hydrox 30 Ml Oral.Susp) 30 ml PO Q6H PRN PRN Reason: Heartburn/Nausea Hydroxyzine HCl (Hydroxyzine Hcl 25 Mg Tablet) 25 mg PO Q6H PRN PRN Reason: Anxiety Magnesium Hydroxide (Milk Of Magnesia 30 Ml Oral.Susp) 30 ml PO DAILY PRN PRN Reason: Constipation Multivitamins/Vitamin C (Multivitamin Tablet) 1 tab PO DAILY [facility] Last Admin: 06/23/21 08:29 Dose: 1 tab Documented by: Risperidone (Risperidone 1 Mg Tablet) 1 mg PO BID [facility] Last Admin: 06/23/21 08:29 Dose: 1 mg Documented by: Thiamine HCl (Thiamine Hcl 100 Mg Tablet) 100 mg PO DAILY [facility] Last Admin: 06/23/21 08:30 Dose: 100 mg Documented by: Trazodone HCl (Trazodone Hcl 50 Mg Tablet) 50 mg PO BEDTIME PRN PRN Reason: Insomnia Allergies Allergies Allergy/AdvReac Type Severity Reaction Status Date / Time No Known Allergies Allergy Verified 06/06/21 10:44 [No Known Allergies*] Assessment & Plan Assessment & Plan (1) Schizoaffective disorder: Status: Acute Code(s): F25.9 - Schizoaffective disorder, unspecified (2) Cannabis use disorder, severe, dependence: Status: Acute Code(s): F12.20 - Cannabis dependence, uncomplicated (3) COVID-19: Status: Acute Code(s): U07.1 - COVID-19 (4) Alcohol use disorder, moderate, dependence: Status: Acute Code(s): F10.20 - Alcohol dependence, uncomplicated Plan 30 yo male, hx of alcohol, cannabis use, reports voices for the past ~2 months, command yesterday to run into traffic and visions where he was told he was speaking to the ground. Pt reports an increase in anxiety, SI, poor sleep and undisrupted appetite. Plan: MVI i daily Thiamine 100 mg daily Ferrous Sulfate 324 mg daily X Ray R Great Toe to r/o fracture Continue Risperdal Collateral contacts Pt learned on admit that he is COVID +. He has signed a three day notice as he mir not want to quarantine at this time. 06/23/21: Tolerating regime which appears to be effective. TDN in place. Denies sx. Continue current plan. Observe I spent 25 minutes with the patient and/or on the patient floor today, greater than?50% of which was spent counseling/coordinating care. Patient educated on: therapeutic strategies Informed Consent: understands Reason for contiued inpatient stay Substantial Risk for: rapid decompensation
[2021-06-23 20:30] VITALS: BP 110/72; PULSE 76; TEMP 36.8; O2SAT 98
[2021-06-24 04:09] LABS: Folate 13.7 ng/mL (> or = 4.0); Vitamin B12 760 pg/mL (200-900)
[2021-06-24 06:00] VITALS: BP 126/75; PULSE 87; TEMP 36.2; O2SAT 99
[2021-06-24] MEDS: Thiamine HCL 100 MG TABLET PO (09:28)
[2021-06-24] MEDS: risperiDONE 1 MG TABLET PO (09:28)
[2021-06-24] MEDS: Multivitamin TABLET 1 TAB PO (09:28)
--- NOTE | 2021-06-24 11:35 | PM.PSYDC ---
DS: Providers Provider Date of Service: 06/24/21 Date of admission: 06/21/21 22:20 Date of discharge: 06/24/21 Primary care physician: Unknown Physician Admitting clinician: Dora Garcia Attending physician on admission: Jae Kumar Attending physician on discharge: Jae Kumar Discharging clinician: Dora Garcia DS: Diagnosis Discharge Diagnosis (1) Schizoaffective disorder: Status: Acute (2) Cannabis use disorder, severe, dependence: Status: Acute (3) COVID-19: Status: Acute (4) Alcohol use disorder, moderate, dependence: Status: Acute DS: Medications Discharge Medications Home Medications: Previous Rx's Medication Instructions Recorded multivitamin (Daily-Jewel) 1 tab PO DAILY #30 tab 06/24/21 risperidone 1 mg tablet 1 mg PO BID #60 tab 06/24/21 thiamine mononitrate (vit B1) 100 100 mg PO DAILY #30 tab 06/24/21 mg tablet trazodone 50 mg tablet 50 mg PO BEDTIME PRN #30 tab 06/24/21 Mental Status Exam Mental Status Exam Patient Appearance: Appropriate Patient Orientation: Person, Place, Time and Situation Level of Consciousness: Alert Patient Behavior: Appropriate, Talkative, Cooperative and Good Eye Contact Mood Description: Calm Affect Description: Calm Patient Cognition Impaired: No Ability to Follow Directions: Good Speech Pattern: Spontaneous Speech Memory Description: Intact Hallucinations: None (denies) Delusions: Not Present Thought Process: Intact and Goal Oriented Thought Content: positive for Goal Oriented Judgement: Good Data Data Completed and Pending Completed studies during hospitalization [Text1]: 06/20/21 06/20/21 06/20/21 22:28 22:40 22:40 WBC 5.9 RBC 3.83 L Hgb 12.2 L Hct 39.0 L MCV 101.8 H MCH 31.9 MCHC 31.3 RDW 12.2 Plt Count 372 MPV 8.9 L Immature Gran % (Auto) 0.2 Neut % (Auto) 49.7 Lymph % (Auto) 44.8 H [place] % (Auto) 4.3 Eos % (Auto) 0.5 Baso % (Auto) 0.5 Lymph # (Auto) 2.6 [place] # (Auto) 0.3 Eos # (Auto) 0.0 Baso # (Auto) 0.0 Abs Immat Gran (auto) 0.01 Absolute Neuts (auto) 2.9 Absolute Nucleated RBC 0.000 Nucleated RBC % (auto) 0.0 Sodium 142 Potassium 4.6 Chloride 106 Carbon Dioxide 26 Anion Gap 15 BUN 17 H Creatinine 0.84 Estim Creat Clear Calc 136.9 Estimated GFR > 60 Random Glucose 95 Estimat Average Glucose Hemoglobin A1c % Calcium 9.5 Magnesium Total Bilirubin 0.4 Direct Bilirubin 0.2 AST 41 H ALT 20 Alkaline Phosphatase 124 H Total Protein 9.1 H Albumin 4.8 Triglycerides Cholesterol LDL Cholesterol, Calc HDL Cholesterol Vitamin B12 Folate TSH Free T4 Urine Opiates Screen Urine Fentanyl Screen Ur Barbiturates Screen Ur Phencyclidine Scrn Ur Amphetamines Screen U Benzodiazepines Scrn Urine Cocaine Screen U Marijuana (THC) Screen Ethyl Alcohol COVID-19 (STEVO) Positive A [facility]-Yakimbi See Note 06/20/21 06/21/21 06/22/21 22:40 09:04 07:32 WBC RBC Hgb Hct MCV MCH MCHC RDW Plt Count MPV Immature Gran % (Auto) Neut % (Auto) Lymph % (Auto) [place] % (Auto) Eos % (Auto) Baso % (Auto) Lymph # (Auto) [place] # (Auto) Eos # (Auto) Baso # (Auto) Abs Immat Gran (auto) Absolute Neuts (auto) Absolute Nucleated RBC Nucleated RBC % (auto) Sodium Potassium Chloride Carbon Dioxide Anion Gap BUN Creatinine Estim Creat Clear Calc Estimated GFR Random Glucose Estimat Average Glucose 82 Hemoglobin A1c % 4.5 Calcium Magnesium Total Bilirubin Direct Bilirubin AST ALT Alkaline Phosphatase Total Protein Albumin Triglycerides Cholesterol LDL Cholesterol, Calc HDL Cholesterol Vitamin B12 Folate TSH Free T4 Urine Opiates Screen Not Detected Urine Fentanyl Screen Not Detected Ur Barbiturates Screen Not Detected Ur Phencyclidine Scrn Not Detected Ur Amphetamines Screen Not Detected U Benzodiazepines Scrn Not Detected Urine Cocaine Screen Not Detected U Marijuana (THC) Screen POSITIVE H Ethyl Alcohol 133 COVID-19 (STEVO) COVID-Yakimbi 06/22/21 06/22/21 07:32 07:32 WBC RBC Hgb Hct MCV MCH MCHC RDW Plt Count MPV Immature Gran % (Auto) Neut % (Auto) Lymph % (Auto) [place] % (Auto) Eos % (Auto) Baso % (Auto) Lymph # (Auto) [place] # (Auto) Eos # (Auto) Baso # (Auto) Abs Immat Gran (auto) Absolute Neuts (auto) Absolute Nucleated RBC Nucleated RBC % (auto) Sodium Potassium Chloride Carbon Dioxide Anion Gap BUN Creatinine Estim Creat Clear Calc Estimated GFR Random Glucose Estimat Average Glucose Hemoglobin A1c % Calcium Magnesium 2.1 Total Bilirubin Direct Bilirubin AST ALT Alkaline Phosphatase Total Protein Albumin Triglycerides 84 Cholesterol 141 LDL Cholesterol, Calc 78 HDL Cholesterol 47 Vitamin B12 760 Folate 13.7 TSH 0.78 Free T4 0.94 Urine Opiates Screen Urine Fentanyl Screen Ur Barbiturates Screen Ur Phencyclidine Scrn Ur Amphetamines Screen U Benzodiazepines Scrn Urine Cocaine Screen U Marijuana (THC) Screen Ethyl Alcohol COVID-19 (STEVO) COVID-19 Clin Com Imaging Diagnostic Imaging Impressions Toe X-Ray 06/22/21 13:45 IMPRESSION: Intra-articular fracture involving the medial third of the distal phalanx of the great toe. The margins are indistinct suggesting this may be subacute. There is associated soft tissue swelling DS: Summary Hospital Course Hospital Course: Admission to adult psychiatry to address symptoms of schizoaffective disorder, alcohol and cannabis use disorder and positive COVID-19 testing. Pt was placed in quarantine upon admission. Although testing positive, he reported no symptoms of illness. Care plan, medication regime and out patient plan of care prior to admission were reviewed. Education was provided regarding management of symptoms, medication and side effects. Nursing and social service worked with Leonard on collateral contacts, care planning, education regarding managment of symptoms, medications and discharge planning. Risperdal, Trazodone, Thiamine and Multivitamins were initiated. Pt left on a three day notice and will complete quarantine at his home. Time spent discussing smoking cessation with patient: 3 to 10 minutes Status at Discharge Functional status at discharge: independent ambulation Overall status at discharge: patient is back to baseline Time Spent with Patient Time attestation: Total time spent providing and/or coordinating discharge services: 35 Time spent: Greater than 30 minutes Discharge Plan Discharge Patient Disposition: Home, Self-Care Discharge Diagnosis: Schizoaffective disorder Cannabis use disorder-severe Alcohol use disorder-moderate COVID-19 Referrals: [facility] [Other] - 1 Week (Pt denied having a PCP and declined staff attempting to make appointment. Pt may call or walk-in at [facility] [place] Therapist: Julissa Silva ([facility]) [Other] - 06/27/21 1:00 pm (Appointment is in office*) Psych Prescriber: Loren Frias ([facility]) [Other] - 07/17/21 9:00 am (*You will be sent an email with instructions to download the moraima for video session and will receive an email with a link to join the appointment*) Psych Prescriber: Loren Frias ([facility]) [Other] - 08/13/21 10:20 am (*You will be emailed a link to join your appointment*) Discharge Medications: New multivitamin [Daily-Jewel] Tablet 1 tab PO DAILY Qty: 30 0RF trazodone 50 mg Tablet 50 mg PO BEDTIME PRN (Reason: Insomnia) Qty: 30 0RF risperidone 1 mg Tablet 1 mg PO BID Qty: 60 0RF thiamine mononitrate (vit B1) 100 mg Tablet 100 mg PO DAILY Qty: 30 0RF Discharge Orders: Discharge Order (Routine); Ordered 06/24/21 Ordered By: Dora Garcia Diet: advance to usual diet Activity on Discharge: As tolerated Stand Alone Forms: Patient Portal Discharge page, Community Support Care Plan Goals: Stabilization of mood and thought process Sobriety Recovery from [id number] asymptomatic Health Concerns: Schizoaffective Disorder Cannabis use disorder Alcohol use disorder Asymptomatic COVID-19 positive Plan of Treatment: Complete quarantine at home until 06/28/21 Take medication as directed Attend follow up appointments We have started Risperdal to manage your symptoms. Trazodone is to assist with sleep. Multivitamin and Thiamine are to be taken to assist your body in returning to balance after alcohol use. Call or return if symptoms return [phone]. Contact crisis if needed [phone] Assessment: Alert, oriented, non suicidal, non homicidal, non psychotic, tolerating new medications. Discharge Date/Time: 06/24/21 14:18
== END 2021-06-24 14:18 | disposition home or self-care (01) | DRG 750 ==
LOC: HO.ED 06-21 15:43 → HO.PM5 06-21 22:25
PROVIDERS: Registered Nurse; Admitting Provider Psychiatry & Neurology Psychiatry; Emergency Provider Emergency Medicine; Visit Provider Clinical Nurse Specialist Psychiatric/Mental Health, Adult
DX: F25.9 Schizoaffective disorder, unspecified (principal); U07.1 COVID-19; R45.851 Suicidal ideations; Y90.6 Blood alcohol level of 120-199 mg/100 ml; F12.20 Cannabis dependence, uncomplicated; F10.229 Alcohol dependence with intoxication, unspecified; Z23 Encounter for immunization; Z79.899 Other long term (current) drug therapy
CPT/HCPCS: 36415; 73660; 80048; 80061; 80076; 80307; 82077; 82607; 82746; 83036; 83735; 84439; 84443; 85025; 87635; 90686; 93005; 99285

== ENCOUNTER 2024-02-21 08:55 | Emergency (ER) | payer MEDICAID, SELFPAY ==
--- NOTE | ~2024-02-21 | XR_ITS ---
EXAMINATION: XR HAND 1-2 VIEWS RIGHT CLINICAL INFORMATION: , crush inj COMPARISON: None available at the time of this dictation. TECHNIQUE: Frontal lateral oblique views of the hand were obtained. 3 views FINDINGS: There is no fracture or dislocation. Radiocarpal, intercarpal, carpometacarpal, metacarpophalangeal and interphalangeal joints are intact. Cortical irregularity in the proximal phalanx second finger likely an old healed injury. There are no osteolytic or osteoblastic lesions. There are no bone erosions. Surrounding soft tissue unremarkable. XR/XR hand RT 2V IMPRESSION: 1. No radiographic evidence of acute fracture. 2. Cortical irregularity in the proximal phalanx second finger likely an old healed injury. Electronically signed by: Yarely Sosa MD 02/21/2024 09:54 AM EDT
[2024-02-21 09:00] VITALS: BP 138/84; PULSE 72; RESP 18; TEMP 36.8; O2SAT 99; BMI 19.9
--- NOTE | 2024-02-21 09:12 | ED.EXTPRO ---
HPI - Extremity Problem General Chief complaint: Extremity Injury, Upper Stated complaint: r hand inj Time Seen by Provider: 02/21/24 09:04 Source: patient Mode of arrival: ambulatory Limitations: no limitations History of Present Illness ED Provider: Shubham HPI Narrative: 33 yo right hand dominant male without significant reported PMH, presents with right hand pain and swelling. States unable to really fully open his hand or bend his fingers since hitting them last night. 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 States tried Motrin for the pain without relief. Onset (ago): hour(s) Related Data Previous Rx's ?Medication ?Instructions ?Recorded multivitamin (Daily-Jewel tablet) 1 tab PO DAILY #30 tabs 06/24/21 risperidone 1 mg tablet 1 mg PO BID #60 tabs 06/24/21 thiamine mononitrate (vit B1) 100 100 mg PO DAILY #30 tabs 06/24/21 mg tablet trazodone 50 mg tablet 50 mg PO BEDTIME PRN Insomnia #30 06/24/21 tabs Allergies Allergy/AdvReac Type Severity Reaction Status Date / Time No Known Allergies Allergy Verified 02/21/24 09:02 [No Known Allergies*] Review of Systems Review of Systems: As per HPI. Yes all other systems are reviewed and are negative Constitutional: Constitutional: Reports as per HPI PMFSH Past Medical History Medical History Anxiety No known health problems Social History Social History (Updated 06/20/21 @ 22:41 by Nereyda Mena DO) Household Members: None Housing: Homeless Do you presently have visiting nurse or other home services: No Alcohol intake: current Patient Tobacco Use Status: Former Tobacco user Tobacco use type: Cigarette e-Cigarette/Vaping Use: Currently Using Second Hand Smoke Exposure: No Substance Use Type: Marijuana and Caffiene Advance Directives: No Advance Directives Information Provided: No service: No Sexual orientation: Decline to Answer Physical Exam Vital Signs: Vital Signs: Last Vital Signs Temp 98.2 F 02/21/24 09:00 Pulse 72 02/21/24 09:00 Resp 18 02/21/24 09:00 BP 138/84 02/21/24 09:00 Pulse Ox 99 02/21/24 09:00 O2 Del Method Room Air 02/21/24 09:00 BMI result Body Mass Index 19.9 Vital signs have been reviewed and appear to be correct. Blood pressure normal. Heart rate normal. Respiratory rate normal. Temperature normal. Oxygen saturation normal. Const: General: cooperative, healthy appearing and no acute distress Orientation/consciousness: oriented to person, oriented to place, oriented to time and patient oriented x3 Limitations: no limitations HEENT: Head: Yes normocephalic and Yes atraumatic Ears: external ears normal General nose exam: Normal external nose present Face and sinus: Yes face symmetric Mouth: oropharynx normal and moist mucous membranes Throat: Yes uvula midline Eyes: Pupils: Equal, round and reactive pupils present Neck: Neck: Yes normal visual inspection and Yes supple Resp: Effort & Inspection: normal respiratory effort and able to speak in complete sentences Auscultation: clear to auscultation bilaterally Cardio: Rate: regular rate Rhythm: regular rhythm Heart sounds: S1 normal heart sound present and S2 normal heart sound present GI: Palpation (GI): Soft to palpation and nontender Auscultation: normoactive bowel sounds : General: Yes no CVA tenderness Back/Spine/Pelvis: Back: no CVA tenderness Skin: General skin exam: elasticity normal and turgor normal Neuro: General: oriented to person, oriented to place, oriented to time, patient oriented x3, moves all extremities, no focal motor deficits and CN's II-XI intact bilaterally Cranial nerves: Yes Equal, round and reactive pupils present Cognition (Neuro): normal cognition Extrem: General: Yes full ROM, Yes no pedal edema and Yes no calf tenderness Right upper extremity: Extremity exam: right hand Details: normal capillary refill, neuromotor exam abnormal Details: unable to assess (patient unable to participate in exam due to pain ), neurosensory exam normal, tendon exam abnormal (4th distal phalanx held in flexion) and tenderness (diffuse to dorsal hand, 2-5th MCP joints, entire 2-5th digits) Psych: Mental Status: mental status grossly normal Affect: normal affect Thought process: Normal thought process present Medical Decision Making Medical Decision Making MDM Narrative: Patient is a 33 yo right hand dominant male without significant reported PMH, presents with right hand pain and swelling. On exam patient is awake, A+Ox3, VS WNL, afebrile, normal neurological exam without focal deficits, physical exam findings as above. Given reported symptoms and physical exam findings, initial differential includes extensor tendon injury, fracture, dislocation, contusion. Physical exam consistent with extensor tendon injury to 4th DIP joint. X-ray notable for no acute fracture, irregularity of proximal phalanx second finger, no tenderness to palpation in that area, feel likely old injury but will splint this injury as well. My interpretation is in agreement with the radiologist's interpretation. 2nd and 4th right fingers splinted, patient instructed to follow up with Ortho, alternate Tylenol ibuprofen, apply ice intermittently. Return precautions discussed at bedside. Patient verbalized understanding of and agreement with plan. Differential Diagnosis Differential Diagnoses: The differential diagnosis associated with the presentation includes As per [facility] Independent Interpretation I performed an independent interpretation of an: Plain X-Ray Interpretation: X-ray notable for no acute fracture, irregularity of proximal phalanx second finger, no tenderness to palpation in that area, feel likely old injury but will splint this injury as well. Radiology Impression Discussion of test interpretation with radiology: I have reviewed the radiologist's reading. Radiologist Impression: XR/XR hand RT 2V IMPRESSION: 1. No radiographic evidence of acute fracture. 2. Cortical irregularity in the proximal phalanx second finger likely an old healed injury. External Record Review External record reviewed: Inpatient record, Office record and Outpatient record Discharge Plan Discharge Clinical Impression: Mallet deformity of right ring finger Patient Disposition: Home, Self-Care Instructions: R.I.C.E. Treatment (ED) Additional Instructions: You have been evaluated in the emergency department today for hand pain. Your xrays did not show evidence of an acute fracture, but your fingers were placed in splints due to tendon injury. Please rest, ice, and elevate your hand, and follow up with the orthopedic office. We recommend you take 600mg ibuprofen every 6 hours or 650mg Tylenol every 6 hours as needed for pain. If Needed you can alternate these medications as they take 1 medication every 3 hours. For instance at noon take ibuprofen, then at 3:00 p.m. take Tylenol, then at 6:00 p.m. take ibuprofen. Please schedule an appointment for follow-up with your primary care provider this week. Return to the emergency department if you experience worsening pain, numbness, tingling, change of color in your fingers/hand, or any other concerning symptoms. Prescriptions: No Action multivitamin [Daily-Jewel] Tablet 1 tab PO DAILY Qty: 30 0RF trazodone 50 mg Tablet 50 mg PO BEDTIME PRN (Reason: Insomnia) Qty: 30 0RF risperidone 1 mg Tablet 1 mg PO BID Qty: 60 0RF thiamine mononitrate (vit B1) 100 mg Tablet 100 mg PO DAILY Qty: 30 0RF Referrals: [facility] [place]Provider Group] - 1 week (Extensor tendon injury right 4th finger) Stand Alone Forms: Work/School Release Print Language: Vincentian
[2024-02-21 10:22] VITALS: BP 138/84; PULSE 72; RESP 18; TEMP 36.8; O2SAT 99
== END 2024-02-21 10:23 | disposition home or self-care (01) ==
PROVIDERS: Emergency Provider Emergency Medicine
DX: M20.011 Mallet finger of right finger(s) (principal); M79.641 Pain in right hand; Z87.891 Personal history of nicotine dependence
CPT/HCPCS: 73120; 99282; 99283

== ENCOUNTER 2024-04-16 05:09 | Emergency (ER) | payer MEDICAID, SELFPAY ==
[2024-04-16] VITALS (12 sets, daily range): BP systolic 78–119; BP diastolic 31–76; PULSE 58–86; RESP 14–22; TEMP 36.4–37.3; O2SAT 93–100; BMI 23.6
--- NOTE | 2024-04-16 05:31 | PC.NURSE ---
ETOH found in a snowbank, refused rectal and oral temp, uncooperative with security for change management manager. some items in [facility] closet shelf 3
--- NOTE | 2024-04-16 06:13 | PC.NURSE ---
pt walking around ED into the nurses station yelling racial words at staff, being uncooperative and not following commands to stay in room. pt lowering himself to the ground to kiss the floor. pt has no medical complaints at this time
--- NOTE | 2024-04-16 06:23 | ED.ALCOHOL ---
HPI - Alcohol General Chief Complaint: ETOH/Substance Use Stated Complaint: ETOH Time Seen by Provider: 04/16/24 05:39 Source: patient and EMS Mode of arrival: EMS Limitations: no limitations History of Present Illness ED Provider: HPI narrative: Patient is intoxicated was lying in the snow back found by PD brought the patient here patient is very uncooperative agitated in the ER no signs of drop patient is walking around in the ER using F words spitting on the ground Related Data Previous Rx's ?Medication ?Instructions ?Recorded multivitamin (Daily-Jewel tablet) 1 tab PO DAILY #30 tabs 06/24/21 risperidone 1 mg tablet 1 mg PO BID #60 tabs 06/24/21 thiamine mononitrate (vit B1) 100 100 mg PO DAILY #30 tabs 06/24/21 mg tablet trazodone 50 mg tablet 50 mg PO BEDTIME PRN Insomnia #30 06/24/21 tabs Allergies Allergy/AdvReac Type Severity Reaction Status Date / Time No Known Allergies Allergy Verified 04/16/24 05:18 [No Known Allergies*] Review of Systems Review of Systems: Yes Unobtainable due to mental condition (Patient not cooperative) [facility] Past Medical History Medical History Anxiety No known health problems Social History Social History Household Members: None Housing: Homeless Do you presently have visiting nurse or other home services: No Alcohol intake: current Patient Tobacco Use Status: Former Tobacco user Tobacco use type: Cigarette e-Cigarette/Vaping Use: Currently Using Second Hand Smoke Exposure: No Substance Use Type: Marijuana and Caffiene service: No Sexual orientation: Decline to Answer Physical Exam ED Vital Signs: Vital Signs - 24 hr 04/16/24 05:29 Temperature 97.5 F Pulse Rate 86 Respiratory Rate 18 Blood Pressure 119/68 Pulse Oximetry 98 Oxygen Delivery Method Room Air BMI result Body Mass Index 23.6 Intoxicated non cooperative Appearance: Alert. Oriented X3. No acute distress. Eyes: PERRLA, No Nystagmus ENT: Pharynx normal. Oral Mucosa moist Neck: Normal inspection. Neck supple. CVS: Normal heart rate and rhythm. Pulses normal. Respiratory: No respiratory distress. Equal air entry bilateral, no wheezing/rales/rhonchi Abdomen: Soft and nontender. Skin: Skin warm and dry. Normal skin color. Normal skin turgor. Extremities: No lower extremity edema. No calf tenderness Neuro: Walking in unsteady gait intoxicated Medical Decision Making Medical Decision Making [facility] Narrative: 615am patient is very agitated spitting on the ground 4 point restraints applied and patient was given Haldol and Ativan IM Medications Administered Discontinued Medications Generic Name Dose Route Start Last Admin Trade Name Freq PRN Reason Stop Dose Admin Haloperidol Lactate 5 mg 04/16/24 06:19 04/16/24 06:28 Haloperidol Lactate 5 Mg/Ml Vial IM 04/16/24 06:20 5 mg STAT STA Administration Lorazepam 2 mg 04/16/24 06:19 04/16/24 06:28 Lorazepam 2 Mg/Ml Vial IM 04/16/24 06:20 2 mg STAT STA Administration Discharge Plan Discharge Clinical Impression: Alcoholic intoxication Patient Disposition: Still a Patient Prescriptions: No Action multivitamin [Daily-Jewel] Tablet 1 tab PO DAILY Qty: 30 0RF trazodone 50 mg Tablet 50 mg PO BEDTIME PRN (Reason: Insomnia) Qty: 30 0RF risperidone 1 mg Tablet 1 mg PO BID Qty: 60 0RF thiamine mononitrate (vit B1) 100 mg Tablet 100 mg PO DAILY Qty: 30 0RF Print Language: East Timorese
[2024-04-16] MEDS: Haloperidol Lactate 5 MG/ML VIAL IM (06:28)
[2024-04-16] MEDS: LORazepam 2 MG/ML VIAL IM (06:28)
--- NOTE | 2024-04-16 06:37 | PC.NURSE ---
PD at beside, assist with 4 point restraints and IM. pt screaming in bed
[2024-04-16] MEDS: 0.9 % Sodium Chloride 1,000 ML 999 ML IV ×2 (07:30→14:53)
--- NOTE | 2024-04-16 07:38 | PC.NURSE ---
Restraints removed with previous RN. Pt has 1:1 sitter at bedside. during vitals eval, BP noted to be hypotensive, provider aware. Pt repositioned and IV established, fluids infusing. sinus viraj on monitor.
--- NOTE | 2024-04-16 11:50 | PC.NURSE ---
this nurse took over pt care at 11am, pt sleeping, 1:1 sitter at bedside, pt restraints removed prior to this nurse taking over care. conveyor monitor intact nsr on monitor, vss, rr equal/non labored, call leonard within reach, will continue plan of care.
--- NOTE | 2024-04-16 14:16 | PC.NURSE ---
pt continues to sleep, rr equal/non labored, sitter at bedside, call leonard within reach, will contniue to monitor
--- NOTE | 2024-04-16 14:53 | PC.NURSE ---
pts bp was soft, provider notified, pt continues to sleep- wakes to stimulus, woodworking machine setter nsr 70s, sitter at bedside, will continue to monitor
--- NOTE | 2024-04-16 16:10 | PC.NURSE ---
ivf continue to run slowly
--- NOTE | 2024-04-16 16:37 | PC.NURSE ---
pt sleeping, wakes to verbal stimulus- following commands, vss, property assessment monitor intact nsr on monitor, pt previously asked for PO- sandwich and drink, pt was brought this but he had fallen back to sleep, sitter was asked to encourage pt to take po that is at his bedside.
--- NOTE | 2024-04-16 17:33 | PC.NURSE ---
tech is aware to draw labs and obtain urine
[2024-04-16 17:54] LABS: Basophils Percent Auto 0.4 % (0-2); Eosinophils Absolute Auto 0.2 X10*3/uL (0.0-0.4); Eosinophils Percent Auto 1.8 % (0-4); Hematocrit 40.5 % (42.0-52.0); Hemoglobin 13.3 g/dl (14.0-18.0); Imm Gran Abs Auto 0.04 X10*3/uL (0.00-0.03); Imm Gran Pct Auto 0.4 % (0.0-0.4); Lymphocytes Absolute Auto 1.7 X10*3/uL (1.2-4.9); MANUAL DIFF FLAG NO; Mean Corpuscular HGB Conc 32.8 g/dl (31.0-36.0); Mean Corpuscular Hemoglobin 33.2 pg (27.0-33.0); Mean Platelet Volume 8.8 fL (9.4-12.4); Monocytes Absolute Auto 0.3 X10*3/uL (0.1-1.2); Monocytes Percent Auto 2.8 % (2-11); Neutrophils Absolute Auto 7.8 x10*3/uL (2.0-8.3); Neutrophils Percent Auto 77.6 % (45-73); Platelet Count 248 X10*3/uL (160-400); Red Blood Count 4.01 X10*6/uL (4.60-5.80); Red Cell Distribution Width 11.5 % (11.0-16.0); White Blood Count 10.1 X10*3/uL (4.8-10.8)
[2024-04-16 18:09] LABS: Ethanol 147 mg/dL
[2024-04-16 18:12] LABS: Alanine Aminotransferase 28 U/L (0-40); Albumin Level 4.2 g/dL (3.5-5.0); Alkaline Phosphatase 102 U/L (39-117); Anion Gap 13 (12-20); Aspartate Amino Transferase 51 U/L (5-37); Bilirubin Total 0.4 mg/dL (0.0-1.0); Blood Urea Nitrogen 18 mg/dL (9-16); Calcium 8.7 mg/dL (8.4-10.2); Carbon Dioxide 24 mmol/L (22-29); Chloride 113 mmol/L (96-108); Creatinine Clr Calc Pharmacy 126.5; Estimated Glomerular Filt Rate > 60; Glucose Random 74 mg/dL (60-115); Lipase 17 U/L (8-78); Magnesium 2.1 mg/dL (1.6-2.6); Potassium 4.1 mmol/L (3.3-5.1); Sodium 146 mmol/L (135-145); Total Protein 7.1 g/dL (6.5-8.0)
== END 2024-04-16 21:00 | disposition home or self-care (01) ==
PROVIDERS: Emergency Medicine Emergency Medical Services; Emergency Provider Emergency Medicine
DX: F10.220 Alcohol dependence with intoxication, uncomplicated (principal); Y90.6 Blood alcohol level of 120-199 mg/100 ml; R45.1 Restlessness and agitation; I95.9 Hypotension, unspecified; F12.20 Cannabis dependence, uncomplicated; F25.9 Schizoaffective disorder, unspecified; Z87.891 Personal history of nicotine dependence; Z79.899 Other long term (current) drug therapy
CPT/HCPCS: 36415; 80053; 80307; 83690; 83735; 85025; 96361; 96372; 96374; 99284; 99285; J1630; J2060; S9485

== ENCOUNTER 2024-10-15 13:59 | Emergency (ER) | payer SELFPAY ==
[2024-10-15 14:50] VITALS: BP 129/77; PULSE 73; RESP 18; TEMP 36.8; O2SAT 100; BMI 19.4
--- NOTE | 2024-10-15 14:50 | ED_ITS ---
HPI - Skin/Abscess/Foreign Bdy General Chief complaint: Skin/Abscess/Foreign Body Stated complaint: rash Time Seen by Provider: 10/15/24 14:55 Source: patient, RN notes reviewed and old records reviewed Mode of arrival: ambulatory History of Present Illness ED Provider: Amparo Davis PA-C HPI narrative: 34-year-old male with a past medical history of schizoaffective disorder, ETOH use disorder, presenting to the ED complaining of diffuse pruritic rash all over body since yesterday. Admits to using OTC cream with some relief. Denies known new exposures including new soap, lotion, detergent, known tick or insect bites, new medications. Admits he was fishing. Denies throat closing sensation, SOB, anaphylaxis Related Data Previous Rx's ?Medication ?Instructions ?Recorded multivitamin (Daily-Jewel tablet) 1 tab PO DAILY #30 tabs 06/24/21 risperidone 1 mg tablet 1 mg PO BID #60 tabs 06/24/21 thiamine mononitrate (vit B1) 100 100 mg PO DAILY #30 tabs 06/24/21 mg tablet trazodone 50 mg tablet 50 mg PO BEDTIME PRN Insomnia #30 06/24/21 tabs cetirizine 10 mg capsule (Zyrtec) 10 mg PO DAILY PRN allergy 10/15/24 symptoms #14 caps diphenhydramine HCl 25 mg capsule 25 mg PO TID PRN allergic reaction 10/15/24 (Benadryl) #14 caps hydrocortisone 1 % topical cream 1 appl topical BID PRN rash #28.4 10/15/24 (Anti-Itch (hydrocortisone)) grams Allergies Allergy/AdvReac Type Severity Reaction Status Date / Time No Known Allergies Allergy Verified 10/15/24 14:51 [No Known Allergies*] Review of Systems Review of Systems: Yes all other systems are reviewed and are negative Constitutional: Constitutional: Reports as per [facility] Past Medical History Attestation statement: The following information was validated with the patient. Source: old records reviewed Medical History Anxiety No known health problems Social History Social History Household Members: None Housing: Homeless Do you presently have visiting nurse or other home services: No Alcohol intake: current Patient Tobacco Use Status: Former Tobacco user Tobacco use type: Cigarette e-Cigarette/Vaping Use: Currently Using Second Hand Smoke Exposure: No Substance Use Type: Marijuana and Caffiene Advance Directives: No Advance Directives Information Provided: Yes service: No Sexual orientation: Decline to Answer Physical Exam Vital Signs: Vital Signs: Last Vital Signs Temp 98.3 F 10/15/24 14:50 Pulse 73 10/15/24 14:50 Resp 18 10/15/24 14:50 BP 129/77 10/15/24 14:50 Pulse Ox 100 10/15/24 14:50 O2 Del Method Room Air 10/15/24 14:50 BMI result Body Mass Index 19.4 Const: General: cooperative, healthy appearing and no acute distress Orientation/consciousness: patient oriented x3 Limitations: no limitations HEENT: Head: Yes normal to inspection and Yes atraumatic Ears: hearing grossly normal bilaterally General nose exam: Normal external nose present Face and sinus: Yes normal facial exam Mouth: Normal oral and palatal mucosa present and no drooling Throat: Yes posterior oropharynx normal, Yes tonsils normal, Yes uvula midline, No peritonsillar mass and No uvular edema Eyes: General: appearance normal, both eyes and all related structures EOM: EOMs intact bilaterally Neck: Neck: Yes normal visual inspection and Yes no meningeal signs Resp: Effort & Inspection: normal respiratory effort, no respiratory distress and no stridor Auscultation: no wheezes Cardio: Rate: regular rate Skin: Other: +small erythematous patch noted to abdom en and upper thigh. No central shagufta aring. No sloughing. No fluctuance/induration or drainage. No vesicle. No palm/sole involvement. No mucous membrane involvement Wounds: no wounds Neuro: General: patient oriented x3, tone normal and no meningeal signs Cranial nerves: Yes CN's II-XII intact bilaterally Gait exam (Neuro): Normal gait present Extrem: General: Yes normal to inspection Medical Decision Making Medical Decision Making MDM Narrative: 34-year-old male with a past medical history of schizoaffective disorder, ETOH use disorder, presenting to the ED complaining of diffuse pruritic rash all over body since yesterday. On exam vital signs stable, NAD, nontoxic appearing, physical exam as noted above. Concern for dermatitis vs allergen. No evidence of SJS/TENs. No evidence of cellulitis. No evidence of anaphylaxis Plan: Topical cream Please refer to course for remaining clinical decision making, interpretation of labs/imaging results, and discussions with consultants and/or family members. Results discussed with patient including worrisome signs and symptoms and strict return precautions, and when to return to the emergency department. They verbalized understanding and feel safe for discharge at this time. Differential Diagnosis Differential Diagnoses: The differential diagnosis associated with the presentation includes As above Independent Historian Clinical information obtained from an independent historian. History obtained from or confirmed by: Other External Record Review External record reviewed: Inpatient record, Office record, Outpatient record, Prior outpatient labs, Prior outpatient radiology, Primary care record and Outside ED record Tests considered The following testing was considered but not selected: As above Prescription Management I considered prescription management with: Other Chronic Conditions Patient?s care impacted by: Other Social Determinants Patient?s care significantly limited by Social Determinants of Health including: Other Social Determinant of Health Discharge Plan Discharge Clinical Impression: Rash Patient Disposition: Home, Self-Care Instructions: Acute Rash (ED) Additional Instructions: Use topical hydrocortisone cream to rash only. Avoid application to face, hands, feet, air genital region In addition take Benadryl and Zyrtec. Benadryl will make you drowsy, do not drive, drink alcohol or operate machinery while taking Follow up with your doctor as well as Dermatology If rash persists, worsens, you develop any shortness of breath, throat closing sensation return to the ED Prescriptions: New diphenhydramine HCl [Benadryl] 25 mg capsule 25 mg PO TID PRN (Reason: allergic reaction) Qty: 14 0RF hydrocortisone [Anti-Itch (HC)] 1 % cream 1 appl topical BID PRN (Reason: rash) Qty: 28.4 0RF Zyrtec 10 mg capsule 10 mg PO DAILY PRN (Reason: allergy symptoms) Qty: 14 0RF No Action multivitamin [Daily-Jewel] Tablet 1 tab PO DAILY Qty: 30 0RF trazodone 50 mg Tablet 50 mg PO BEDTIME PRN (Reason: Insomnia) Qty: 30 0RF risperidone 1 mg Tablet 1 mg PO BID Qty: 60 0RF thiamine mononitrate (vit B1) 100 mg Tablet 100 mg PO DAILY Qty: 30 0RF Referrals: [facility] [Outside] [facility] [Outside] Print Language: Fijian
--- OUTSIDE RECORDS SUMMARY | 2024-10-15 15:01 | XMS_ITS | Encounter Summary ---
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 Name Role Phone Paul Suresh MD Primary Care Provider [phone] Encounter Details Date Type Department Care Team (Late st Contact Info) Description 12/25/2016 Conversion Encounter [facility] [address] [facility] [place] [address] Social History Tobacco Use Types Packs/Day Years Used Date Smoking Tobacco: Never Assessed Sex and Gender Information Value Date Recorded Sex Assigned at Not on file Legal Sex Male 4:21 PM EDT Gender Identity Not on file Sexual Orientation Not on file documented as of this encounter Plan of Treatment Not on file documented as of this encounter Visit Diagnoses Not on filedocumented in this encounter Care Teams Mixing Machine Tender Relationship Specialty Start Date End Date Paul Suresh MD [address] [facility] [address] [place] [address] PCP - General 12/19/16 12/16/22 documented as of this encounter
[2024-10-15 16:09] VITALS: BP 129/77; PULSE 73; RESP 18; TEMP 36.8; O2SAT 100
== END 2024-10-15 16:09 | disposition home or self-care (01) ==
PROVIDERS: Emergency Provider Emergency Medicine
DX: R21 Rash and other nonspecific skin eruption (principal)
CPT/HCPCS: 99282; 99283

== ENCOUNTER 2024-12-24 14:34 | Emergency (ER) | payer MEDICAID, SELFPAY ==
--- NOTE | ~2024-12-24 | XR_ITS ---
CLINICAL HISTORY: pain, injury Right rib series with PA chest Comparison: None Findings: Normal cardiomediastinal silhouette. Lungs are well expanded and clear. No pneumothorax or pleural effusions. No rib fractures. No osteoblastic or osteolytic lesions. Impression: 1. Normal chest with right rib series. 2. Limited exam since the patient was unable to finish the exam and only a PA and single oblique view was obtained This document has been electronically signed by: Evaristo Virgen MD on 12/24/2024 16:13:50
[2024-12-24 14:50] VITALS: BP 137/72; PULSE 121; O2SAT 95; BMI 20.7
--- NOTE | 2024-12-24 14:50 | ED_ITS ---
HPI - General Adult General Chief complaint: Overdose Stated complaint: OVERDOSE Time Seen by Provider: 12/24/24 14:50 Source: patient and EMS Mode of arrival: EMS Limitations: no limitations History of Present Illness ED Provider: Erika Almonte PA-C HPI narrative: Patient is a 34 year old assigned male at with a history of schizoaffective disorder, cannabis use disorder, and alcohol use disorder, presenting to the emergency department today with right sided rib pain after an overdose. Patient states that he has been having right sided rib pain for years after an incident. EMS states that the patient was [place] unresponsive in a park where they gave narcan and he woke up. Patient adamantly denies any drug use today and states he only wants his ribs examined. Patient denies any other complaints at this time. Related Data Previous Rx's ?Medication ?Instructions ?Recorded multivitamin (Daily-Jewel tablet) 1 tab PO DAILY #30 ta bs 06/24/21 risperidone 1 mg tablet 1 mg PO BID #60 tabs 2 thiamine mononitrate (vit B1) 100 100 mg PO DAILY #30 tabs 06/24/21 mg tablet trazodone 50 mg tablet 50 mg PO BEDTIME PRN Insomni a #30 06/24/21 tabs cetirizine 10 mg capsule (Zyrtec) 10 mg PO DAILY PRN a llergy 10/15/24 symptoms #14 caps diphenhydramine HCl 25 mg capsule 25 mg PO TID PRN all ergic reaction 10/15/24 (Benadryl) #14 caps hydrocortisone 1 % topical cream 1 appl topical BID KS N rash #28.4 10/15/24 (Anti-Itch (hydrocortisone)) grams Allergies Allergy/AdvReac Type Severity Reaction Status Date / Time No Known Allergies (No Known Allergy Verified 12/24/24 14:54 Allergies*) Review of Systems Constitutional: Constitutional: Reports as per HPI Eyes: Eyes: Reports as per HPI ENT: Reports as per HPI Cardiovascular: Cardiovascular: Reports as per HPI Respiratory: Respiratory: Reports as per HPI Gastrointestinal: Gastrointestinal: Reports as per HPI Genitourinary: Genitourinary: Reports as per HPI Musculoskeletal: Musculoskeletal: Reports as per HPI Integumentary/Breasts: Skin/Breast: Reports as per HPI Neurologic: Reports as per HPI Psychiatric: Psychiatric: Reports as per HPI Endocrine: Endocrine: Reports as per HPI Hematologic/Lymphatic: Hematologic/Lymphatic: Reports as per HPI Allergic/Immunologic: Allergic/Immunologic: Reports as per HPI [facility] Past Medical History Attestation statement: The following information was validated with the patient. Source: old records reviewed and nursing notes reviewed Medical History Anxiety No known health problems Social History Social History Household Members: None Housing: Homeless Do you presently have visiting nurse or other home services: No Unable to assess alcohol history related to: Unknown Alcohol intake: current Patient Tobacco Use Status: Former Tobacco user Tobacco use type: Cigarette Smoked in Last 30 Days: Yes e-Cigarette/Vaping Use: Currently Using Second Hand Smoke Exposure: No Substance Use Type: Opiates Advance Directives: No Advance Directives Information Provided: No service: No Sexual orientation: Decline to Answer Physical Exam ED Vital Signs: Vital Signs - 24 hr 12/24/24 14:55 12/24/24 15:00 12/24/24 15:18 Temperature 98.7 F 98.0 F Pulse Rate 109 H 108 H 108 H Respiratory Rate 20 16 16 Blood Pressure 133/65 137/74 Pulse Oximetry 96 Oxygen Delivery Method Room Air Room Air BMI result Body Mass Index 20.7 Const General: cooperative, no acute distress, alert and awake Nutritional Appearance: well nourished Orientation/consciousness: patient oriented x3 HENMT Head: Yes normal to inspection and Yes atraumatic Ears: hearing grossly normal bilaterally and external ears normal General nose exam: Normal external nose present, no nasal discharge noted and no epistaxis Face and sinus: Yes normal facial exam, No abrasion and No laceration Mouth: Normal oral and palatal mucosa present, no drooling and no muffled voice Eyes General: appearance normal, both eyes and all related structures Periorbital: periorbital findings normal Eyelids: Yes eyelids normal Conjunctivae: conjunctivae normal Pupils: Equal, round and reactive pupils present EOM: EOMs intact bilaterally Neck Neck: Yes normal visual inspection and Yes full ROM Resp Effort & Inspection: normal respiratory effort and able to speak in complete sentences Neuro General: patient oriented x3, moves all extremities and CN's II-XI intact bilaterally Cranial nerves: Yes Equal, round and reactive pupils present Cognition (Neuro): normal cognition Extrem General: Yes normal to inspection, Yes full ROM and Yes capillary refill normal Psych Appearance: grossly normal Mental Status: mental status grossly normal Affect: normal affect Attitude: cooperative Thought process: Normal thought process present Thought content: Normal thought content present Insight: Good insight present (Psych) Medications Administered Discontinued Medications Generic Name Dose Route Start Last Admin Trade Name Nehal PRN Reason Stop Dose Admin Albuterol Sulfate 4 puff 12/24/24 14:59 12/24/24 15:00 Albuterol Sulfate 90 Mcg 8 Gm Inhaler INHALE 12/24/24 15:00 4 puff ONCE ONE Administration Medical Decision Making Medical Decision Making [facility] Narrative: Patient is a 34 year old assigned male at with a history of schizoaffective disorder, cannabis use disorder, and alcohol use disorder, presenting to the emergency department today with right sided rib pain after an overdose. Patient's physical exam was unremarkable. Patient's chest and right rib x-ray showed no acute process. I explained my physical exam findings as well as all test results to the patient. I answered all questions asked by the patient. Patient requested an inhaler of which he was given. Patient requested an JESS wrap be wrapped around his chest for his right rib pain. I applied a LOOSE JESS wrap to the patient's chest, per his request. Patient adamantly declined any resources for opiate use disorder including a safe use kit, recovery team evaluation, and narcan. Patient requested to be discharged im mediately and left before he was given his discharge instructions. Patient was alert, oriented, and appropriate for discharge walking steadily on his feet. Differential Diagnosis Differential Diagnoses: The differential diagnosis associated with the presentation includes Overdose Opiate use disorder Rib pain Admission/Observation Consideration of admission/observation: Escalation of care including admission/observation considered Patient would have been admitted to the hospital had his work up had any findings where hospital admission was appropriate and his clinical presentation warranted hospital admission. Independent Historian Clinical information obtained from an independent historian. History obtained from or confirmed by: EMS (EMS provided additional history and confirmed the history provided by the patient.) Discharge Plan Discharge Clinical Impression: Drug overdose, Pain in rib Patient Disposition: Home, Self-Care Instructions: Adult Overdose (ED), Rib Contusion (ED) Additional Instructions: You were seen in our Emergency Department for an overdose today. You received narcan in order to reverse the effects of overdose. Narcan only lasts about 45 min to 1 hour in the system. [employer] is a 01/12 hotline where you can be on the phone with someone while you use, and they can call for help if they suspect an overdose: [phone] Things to look out for when you leave include severe vomiting or diarrhea, headaches, muscle cramps, fever, coughing, chest pain, or if you feel so short of breath you cannot walk to the bathroom. Please seek care and return any time for worsening symptoms.? If you decide you want to stop or cut down on how much you?re using, please call the numbers on the list provided to you or you can come to our outpatient Addiction Treatment office [facility] (M-F 9am-5p) [address] [place] [address], [facility] [address] [place], [place]. [phone] IF you are prescribed home medications and/or you are taking over the counter medications at home - it is very important you continue to do so as prescribed / directed unless told otherwise. Follow up with your primary care provider. Return to the emergency department immediately if your symptoms worsen or if you develop any numbness, tingling, dizziness, shortness of breath, difficulty breathing, chest pain, blurry vision, loss of vision, nausea, vomiting, abdominal pain, fever, chills, back pain, or any other complaints. Please see the information below about our Patient Portal. If you are not yet enrolled in the [facility] Patient Portal, you will receive an enrollment email invitation following your visit to any [facility] setting. You may also self-enroll in the Patient Portal by visiting our website: [email or web address] The following information is required to access the Patient Portal: - Your [facility] Medical Record Number - Your personal home email address (must match what is in your electronic [facility], Registration staff can assist with this) - Name - Date of Capabilities of the Patient Portal: - Message some providers - View upcoming appointments - Access your health summary, medical history, and visit history - View current conditions and allergies - View procedure and lab results - View your medications, including guidelines, side effects, and precautions - Complete pre-appointment questionnaires requested by your provider - Ready summary reports of your office visits and procedures To access the Patient Portal Mobile [place], follow these directions: - Search [employer] [place] in the [place] Store or [employer] Store - Download the [place] - Search for [facility] - Enter your login/password Prescriptions: No Action multivitamin [Daily-Jewel] Tablet 1 tab PO DAILY Qty: 30 0RF trazodone 50 mg Tablet 50 mg PO BEDTIME PRN (Reason: Insomnia) Qty: 30 0RF risperidone 1 mg Tablet 1 mg PO BID Qty: 60 0RF thiamine mononitrate (vit B1) 100 mg Tablet 100 mg PO DAILY Qty: 30 0RF diphenhydramine HCl [Benadryl] 25 mg capsule 25 mg PO TID PRN (Reason: allergic reaction) Qty: 14 0RF hydrocortisone [Anti-Itch (HC)] 1 % cream 1 appl topical BID PRN (Reason: rash) Qty: 28.4 0RF Zyrtec 10 mg capsule 10 mg PO DAILY PRN (Reason: allergy symptoms) Qty: 14 0RF Interventions: ED Discharge Assessment Last Done: 12/24/24 15:18 Discharge Date/Time: 12/24/24 15:32 Print Language: Mozambican
[2024-12-24 14:55] VITALS: BP 133/65; PULSE 109; RESP 20; TEMP 37.1; O2SAT 96
[2024-12-24 15:00] VITALS: PULSE 108; RESP 16; O2SAT 96
[2024-12-24] MEDS: Albuterol Sulfate 90 MCG 8 GM INHALER 4 PUFF INHALE (15:00)
--- NOTE | 2024-12-24 15:17 | PC.NURSE ---
CXR obtained per patients request and patient ambulated out of the department with a verbal discharge.
[2024-12-24 15:18] VITALS: BP 137/74; PULSE 108; RESP 16; TEMP 36.7
== END 2024-12-24 15:32 | disposition home or self-care (01) ==
LOC: HO.ED 15:24
PROVIDERS: Emergency Provider Emergency Medicine
DX: R07.89 Other chest pain (principal); T50.901A Poisoning by unspecified drugs, medicaments and biological substances, accidental (unintentional), initial encounter; R40.4 Transient alteration of awareness; Y92.9 Unspecified place or not applicable; Z87.891 Personal history of nicotine dependence; Z71.51 Drug abuse counseling and surveillance of drug abuser
CPT/HCPCS: 71101; 94640; 99284; 99285

== ENCOUNTER → 2024-12-24 14:51 | Outpatient (BNV) | payer MEDICAID, SELFPAY | PROVIDERS: Emergency Provider Emergency Medicine; Visit Provider Radiology Diagnostic Radiology | DX: R07.89 Other chest pain (principal) | CPT/HCPCS: 71101 ==